=== PATIENT | female | born 1995 | race Caucasian/White ===

== ENCOUNTER 2023-06-04 20:05 | Inpatient (IN) | payer OTHER, SELFPAY ==
[2023-06-04 20:07] VITALS: BP 115/82; PULSE 87; RESP 16; TEMP 36.3; O2SAT 100; BMI 37.6
[2023-06-04 21:59] LABS: Bacteria 0 SEEN /hpf (None Seen); Mucous, Urine 0 SEEN /hpf (<or=2+); Red Blood Cells-Urine 0 SEEN /hpf (0-5); White Blood Cells 0 SEEN /hpf (0-5)
[2023-06-04 22:03] LABS: Color, Urine Yellow (Yellow); Glucose, Dipstick Normal (Normal); Ketone-Dipstick 5 mg/dl (Negative); Leukocyte Esterase-Dipstick Negative /ul (Negative); Nitrite-Dipstick Negative (Negative); Occult Blood-Urine Negative /ul (Negative); Protein-Dipstick Negative (Negative); Specific Gravity, Urine 1.015 (1.002-1.030); Urine Bilirubin Dipstick Negative (Negative); Urine Clarity Clear (Clear); Urine Urobilinogen Normal (Normal)
[2023-06-04 22:03] LABS: Absolute Lymphocyte Count 1.74 X10^3/uL (0.83-4.51); Absolute Neutrophil Count 5.2 X10^3/uL (2.0-7.7); Basophil# 0.03 X10^3/uL; Basophil% 0.4 % (0-1); Eosinophil# 0.08 X10^3/uL; Hemoglobin 13.3 g/dL (12.0-15.0); Lymphocyte # 1.74 X10^3/ul (0.83-4.51); Lymphocyte % 22.8 % (19-41); Mean Corp Hgb Conc 33.3 g/dL (32-36); Mean Corpuscular Hgb 30.2 pg (27.0-32.0); Mean Corpuscular Volume 90.7 fL (81-99); Monocyte# 0.54 X10^3/uL; Monocyte% 7.1 % (0-10); NRBC Flagged by Analyzer 0 % (0-5); Neutrophil # 5.23 X10^3/uL (2.7-7.7); Neutrophil % 68.4 % (47-70); Platelet Count 399 K/mm3 (150-450); RBC Distribution Width CV 12.1 % (11.6-14.6); RBC Distribution Width SD 40.2 fl (35.1-43.9); Red Blood Count 4.41 M/mm3 (4.2-5.4); White Blood Count 7.6 K/mm3 (4.4-11.0)
[2023-06-04 22:11] LABS: Squamous Epithelial Cells - UA 0-5 SEEN /hpf (5-10)
[2023-06-04 22:11] LABS: Internal QC Validated? YES +Cl - CLEAR BKGD; Pregnancy, Serum, hCG Quali. NEGATIVE Negative
[2023-06-04 22:20] LABS: ALB/GLOB Ratio 1.2 RATIO (0.9-2.4); AST(SGOT) 618 U/L (15-37); Alanine Aminotransfer ALT/SGPT 570 U/L (13-56); Albumin, Serum 3.8 g/dL (3.2-5.0); Alkaline Phosphatase 102 U/L (45-117); Anion Gap 4 (5-15); BUN 7 mg/dL (7-18); BUN/Creat Ratio 10.5 RATIO (10-20); Calcium,Total 8.8 mg/dL (8.5-10.1); Chloride 107 mmol/L (98-107); Creatinine, Serum 0.67 mg/dL (0.55-1.02); EST Glomerular Filtration Rate 113 mL/min (>60); Est Glom Filt Rate - Afr Amer 137 mL/min (>60); Estimated Creatinine Clearance 100.64 ml/min; Globulin 3.2 g/dL (2.2-4.2); Glucose 120 mg/dL (74-106); Potassium 3.4 mmol/L (3.5-5.1); Sodium Level 137 mmol/L (136-145)
--- NOTE | 2023-06-04 22:33 | US_ITS ---
EXAM: US ABDOMEN LIMITED, RIGHT UPPER QUADRANT CLINICAL INDICATION: RUQ PAIN TECHNIQUE: Real-time ultrasound of the right upper quadrant with image documentation. COMPARISON: No relevant prior studies available. FINDINGS: LIVER: No significant abnormality. There is normal echotexture. No focal hepatic lesion. No intrahepatic biliary ductal dilation. GALLBLADDER: The gallbladder is full of stones resulting in diffuse shadowing. Although poorly defined, there is no distinct bladder wall thickening. Negative sonographic Tineo''s sign. No pericholecystic fluid. COMMON BILE DUCT: Normal as visualized. The proximal common bile duct is within normal limits for the patient''s age. PANCREAS: The pancreatic tail is not visualized. The remainder of the pancreas appears normal. RIGHT KIDNEY: No significant abnormality. There is no hydronephrosis. No shadowing calculus. No focal lesion or perinephric collection is demonstrated. US/Gallbladder IMPRESSION: Cholelithiasis. The gallbladder is full of stones. No evidence of cholecystitis. Electronically Signed: Eleazar Hebert DO at 23:55 EST ,
--- NOTE | 2023-06-04 22:35 | ED.VIS.GI ---
HPI HPI - GI History of Present Illness Chief Complaint: Abd Pain Narrative Narrative: 28-year-old female presenting with right upper quadrant abdominal pain. Patient states she has history of gallbladder issues. Previously she was seen [facility] for this. She states that they did not want to take gallbladder out. Patient states that a tonight she had noticed pain. Potential painkillers. Pain is better but not resolved. No fevers chills. No constipation or diarrhea. PFSH PFSH Home Medications NK 06/04/23 [History Last Taken Unknown] Allergy/AdvReac Type Severity Reaction Status Date / Time No Known Allergies Allergy Verified 06/04/23 21:16 Social History Smoking Status: Never smoker ROS ROS ED Constitutional Constitutional ED: Denies chills, fever(s) or sweats Eyes Eyes: Denies blurry vision or change in vision ENT ENT ED: Denies ear pain or sore throat Cardiovascular Cardiovascular: Denies chest pain, palpitations or racing heartbeat Respiratory/Chest Respiratory/Chest: Denies cough, dyspnea or sputum Gastrointestinal Gastrointestinal: Reports abdominal pain; Denies constipation, diarrhea, nausea or vomiting Genitourinary Genitourinary ED: Denies dysuria, hematuria or urinary frequency Musculoskeletal Musculoskeletal: Denies arthralgias, myalgias or neck pain Integumentary Denies abscess, Abrasions or rash Neurologic Neurologic: Denies headache(s), paresthesias or weakness Psychiatric Psychiatric: Denies anxiety, depression, suicidal ideation or suicidal thoughts Endocrine Endocrinology: Denies polydipsia or polyuria EXAM Physical Exam Const Vital Signs: 06/04/23 20:07 Temperature 97.4 F L Temperature Source Temporal Pulse Rate 87 Respiratory Rate 16 Blood Pressure 115/82 H Blood Pressure Mean 93 Pulse Ox 100 Oxygen Delivery Method Room Air Positive well nourished and well developed General Appearance ED: well developed; Negative for pallor HEENT Reports moist mucous membranes normocephalic and atraumatic Eyes General Eye ED: Yes pale conjunctiva; Negative for scleral icterus Neck no lymphadenopathy GI Palpation: tender RLQ Extremity full ROM Neuro CN's II-XII intact bilaterally and moves all extremities Sensorium / Orientation: alert and oriented to person Psych mental status grossly normal and thought process normal Skin no wounds General Skin Exam: Negative for jaundice or pallor MDM MDM MDM Narrative Medical decision making narrative: 28-year-old female presenting with right upper quadrant pain. Patient states she has a history of gallbladder issues. Patient took pain meds before coming to the ER. Differential includes gastritis, peptic ulcer disease, colitis, pancreattitis, cholelithiasis, cholecystitis,uti Pyelonephritis. CBC was obtained to assess white blood cell count, hemoglobin, platelets. CMP to assess liver function, liver function, electrolytes. Lipase to assess for pancreatitis, urinalysis to assess for UTI. CBC shows normal white blood cell count of 7.6. Hemoglobin stable at 15.3. Platelets are normal at 399. Renal function is normal. Total bilirubin 1.3. AST 618, ALT 570. Lipase is normal. Patient currently states she is pain-free because she took pain meds before she came. She was offered pain medicine here and declines. Right upper quadrant ultrasound shows cholelithiasis without cholecystitis. Discussed with general surgery who recommended ERCP. I spoke with Dr. Larson who is amenable to this. Patient admitted to medicine. She was given a dose of Zosyn. Discussed all findings and future procedures with the patient. She is amenable to this. Impression: 1. Acute cholelithiasis 2. Elevated LFTs Lab Data Attestation: I reviewed the patient's lab results. Labs: Laboratory Results - last 24 hr 06/04/23 06/04/23 21:50 21:54 WBC 7.6 RBC 4.41 Hgb 13.3 Hct 40.0 MCV 90.7 MCH 30.2 MCHC 33.3 RDW Std Deviation 40.2 RDW Coeff of Fatmata 12.1 Plt Count 399 MPV 9.0 Immature Gran % (Auto) 0.300 Neut % (Auto) 68.4 Lymph % (Auto) 22.8 [place] % (Auto) 7.1 Eos % (Auto) 1.0 Baso % (Auto) 0.4 Absolute Neuts (auto) 5.2 Absolute Lymphs (auto) 1.74 Nucleated RBC % 0 Sodium 137 Potassium 3.4 L Chloride 107 Carbon Dioxide 26.0 Anion Gap 4 L BUN 7 Creatinine 0.67 Estim Creat Clear Calc 100.64 Est GFR (MDRD) Af Amer 137 Est GFR (MDRD) Non-Af 113 BUN/Creatinine Ratio 10.5 Glucose 120 H Calcium 8.8 Total Bilirubin 1.30 H AST 618 H ALT 570 H Alkaline Phosphatase 102 Total Protein 7.0 Albumin 3.8 Globulin 3.2 Albumin/Globulin Ratio 1.2 Lipase 37 Serum , Qual NEGATIVE Urine Color Yellow Urine Clarity Clear Urine pH 6.0 Ur Specific [place] 1.015 Urine Protein Negative Urine Glucose (UA) Normal Urine Ketones 5 H Urine Occult Blood Negative Urine Nitrite Negative Urine Bilirubin Negative Urine Urobilinogen Normal Ur Leukocyte Esterase Negative Urine RBC 0 SEEN Urine WBC 0 SEEN Ur Squamous Epith Cells 0-5 SEEN Urine Bacteria 0 SEEN Urine Mucus 0 SEEN Radiography Diagnostic Testing: Clinical Impression(s) from Imaging Studies Gallbladder Ultrasound 06/04/23 22:33 IMPRESSION: Cholelithiasis. The gallbladder is full of stones. No evidence of cholecystitis. Electronically Signed: Eleazar Hebert DO at 23:55 EST , Discharge Plan Triage Chief Complaint: Abd Pain ED Provider: Clarence Mcconnell Dx/Rx/DC Orders Prescriptions: No Action NK Primary Care Provider: Martin Lin Referrals: Martin Lin DO [Primary Care Provider] -
[2023-06-04 23:39] LABS: Lipase 37 U/L (13-75)
[2023-06-05] VITALS (13 sets, daily range): BP systolic 106–129; BP diastolic 61–77; PULSE 63–107; RESP 14–18; TEMP 36.3–36.8; O2SAT 96–100; BMI 37.1
--- NOTE | 2023-06-05 01:06 | HP.PCM.HOS_ITS ---
HPI - General General Date of Admission: 06/05/23 Date of Service: 06/05/23 Chief Complaint: Right upper quadrant abdominal pain HPI Narrative LAKEISHA BLACKWELL, is a 28 F with a past medical history of gallbladder colic; previously evaluated the [facility] and obesity with a BMI of 37.7 this admission who presents to [facility] ER complaining of right upper quadrant abdominal pain. Ms. Blackwell reports her symptoms began a pproximately 1 day prior to admission with the abrupt onset of right upper quadrant pain similar to her previous episodes of gallbladder colic. She explains that her physicians at the [facility] wanted to avoid cholecystectomy in the past. She denies associated fever, chills, nausea, vomiting or significant recent use of Tylenol. In the ER her right upper quadrant ultrasound revealed cholelithiasis without evidence of cholecystitis along with laboratory evidence of hyperbilirubinemia with a total bilirubin of 1.3 mg/dL and hyper transaminasemia with an AST of 618 and ALT of 570 present on admission along with mild hypokalemia of 3.4 mmol/L present on admission. The ER physician and spoke to Dr. Kunz of general surgery who recommended GI consultation with Dr. Larson for ERCP prior to semielective cholecystectomy on Thursday or Thursday of next week. She was then admitted to the general medical floor for ongoing care for a stay that is expected to extend beyond 48 hours. [facility] Medical History (Updated 06/05/23 @ 03:04 by Keyonna Goodrich) Injury of head and neck Home Medications NK 06/04/23 [History Last Taken Unknown] Allergy/AdvReac Type Severity Reaction Status Date / Time No Known Allergies Allergy Verified 06/04/23 21:16 Social History Smoking Status: Never smoker ROS ROS Narrative Review of systems: Constitutional: Patient denies fevers chills or sweats ENT: Patient denies ear pain, rhinorrhea or sore throat Eyes: Patient denies blurry vision or changes in vision Cardiovascular: Patient denies chest pain or palpitations Respiratory: Patient denies cough or shortness of breath Gastrointestinal: Patient admits to abdominal pain but denies constipation, diarrhea, nausea or vomiting Genitourinary: Patient denies dysuria hematuria or urinary frequency Musculoskeletal: Patient denies arthralgias, myalgias, neck pain or back pain Integumentary: Patient denies abscess or rash Neurologic: Patient denies headache or focal neurologic deficits Psychiatric: Patient denies anxiety depression or suicidal thoughts Endocrine: Patient denies polyuria, polyphagia and polydipsia 14 point review systems otherwise negative except for positives noted in HPI above. Vital Signs Vital Signs Vital Signs: 06/04/23 20:07 Temperature 97.4 F L Temperature Source Temporal Pulse Rate 87 Respiratory Rate 16 Blood Pressure 115/82 H Blood Pressure Mean 93 Pulse Ox 100 Oxygen Delivery Method Room Air Weight Weight: 206 lb Body Mass Index (BMI) 37.6 Physical Exam Const alert, oriented x3, no apparent distress and healthy appearing Constitutional Narrative: Patient is obese. General Appearance: cooperative HEENT normocephalic, head/scalp atraumatic, hearing grossly normal bilaterally, moist oral mucous membranes and oropharynx normal Eyes PERRL and EOMs intact bilaterally Eyes Narrative: Conjunctivae are pale. Neck no lymphadenopathy, supple, no JVD and no carotid bruits Resp normal respiratory effort, no retractions, no use of accessory muscles and clear to auscultation bilaterally Cardio regular rate and regular rhythm GI GI Narrative: Positive right upper quadrant tenderness to palpation. Extremity normal to inspection, full ROM and no clubbing, cyanosis or edema Neuro oriented x3, CN's II-XII intact bilaterally, moves all extremities and no focal motor deficits Sensorium / Orientation: awake, alert, oriented to person, oriented to place and oriented to time Speech: speech normal Motor Exam: strength 5/5 throughout Psych affect normal Results Lab / Micro Data Attestation: I reviewed the patient's lab results. Lab results narrative: [facility] Imaging Services [address] [place] [address] Gallbladder MR#: [id number] Acct: [id number] Name: LAKEISHA BLACKWELL Rep #: [id number] : 1995 F 28 From: Eleazar Hebert DO PCP: Dr. Martin Lin, Status: REG ER Study: Gallbladder Date of Exam: 06/04/23 Exam# [id number] Ordering Dr: Clarence Mcconnell DO EXAM: US ABDOMEN LIMITED, RIGHT UPPER QUADRANT CLINICAL INDICATION: RUQ PAIN TECHNIQUE: Real-time ultrasound of the right upper quadrant with image documentation. COMPARISON: No relevant prior studies available. FINDINGS: LIVER: No significant abnormality. There is normal echotexture. No focal hepatic lesion. No intrahepatic biliary ductal dilation. GALLBLADDER: The gallbladder is full of stones resulting in diffuse shadowing. Although poorly defined, there is no distinct bladder wall thickening. Negative sonographic Tineo''s sign. No pericholecystic fluid. COMMON BILE DUCT: Normal as visualized. The proximal common bile duct is within normal limits for the patient''s age. PANCREAS: The pancreatic tail is not visualized. The remainder of the pancreas appears normal. RIGHT KIDNEY: No significant abnormality. There is no hydronephrosis. No shadowing calculus. No focal lesion or perinephric collection is demonstrated. US/Gallbladder IMPRESSION: Cholelithiasis. The gallbladder is full of stones. No evidence of cholecystitis. Electronically Signed: Eleazar Hebert DO at 23:55 EST , CC: Dr. Clarence Mcconnell DO; Dr. Martin Lin DO ~ Fancy [employer]er: Signed 06/04/23 21:54 06/04/23 21:54 Labs: Laboratory Results - last 24 hr 06/04/23 21:50: Urine Color Yellow, Urine Clarity Clear, Urine pH 6.0, Ur Specific [place] 1.015, Urine Protein Negative, Urine Glucose (UA) Normal, Urine Ketones 5 H, Urine Occult Blood Negative, Urine Nitrite Negative, Urine Bilirubin Negative, Urine Urobilinogen Normal, Ur Leukocyte Esterase Negative, Urine RBC 0 SEEN, Urine WBC 0 SEEN, Ur Squamous Epith Cells 0-5 SEEN, Urine Bacteria 0 SEEN, Urine Mucus 0 SEEN 06/04/23 21:54: WBC 7.6, RBC 4.41, Hgb 13.3, Hct 40.0, MCV 90.7, MCH 30.2, MCHC 33.3, RDW Std Deviation 40.2, RDW Coeff of Fatmata 12.1, Plt Count 399, MPV 9.0, Immature Gran % (Auto) 0.300, Neut % (Auto) 68.4, Lymph % (Auto) 22.8, [place] % (Auto) 7.1, Eos % (Auto) 1.0, Baso % (Auto) 0.4, Absolute Neuts (auto) 5.2, Absolute Lymphs (auto) 1.74, Nucleated RBC % 0, Sodium 137, Potassium 3.4 L, Chloride 107, Carbon Dioxide 26.0, Anion Gap 4 L, BUN 7, Creatinine 0.67, Estim Creat Clear Calc 100.64, Est GFR (MDRD) Af Amer 137, Est GFR (MDRD) Non-Af 113, BUN/Creatinine Ratio 10.5, Glucose 120 H, Calcium 8.8, Total Bilirubin 1.30 H, AST 618 H, ALT 570 H, Alkaline Phosphatase 102, Total Protein 7.0, Albumin 3.8, Globulin 3.2, Albumin/Globulin Ratio 1.2, Lipase 37, Serum , Qual NEGATIVE Radiology Impression Gallbladder Ultrasound 06/04/23 22:33 IMPRESSION: Cholelithiasis. The gallbladder is full of stones. No evidence of cholecystitis. Electronically Signed: Eleazar Hebert DO at 23:55 EST , Assessment & Plan Assessment/Plan (1) Right upper quadrant pain: (2) Elevated liver enzymes: PLAN: Plan 1. Right upper quadrant pain with mild hyperbilirubinemia and moderate hypertransaminasemia; with AST of 618 and ALT of 570 present on admission in the setting of a known history of gallbladder colic previously followed at the [facility] along with numerous gallstones on ultrasound this admission - Admit to general medical floor. Continue empiric IV Zosyn begun in the ER. Avoid Tylenol due to increase risk of further potential hepatotoxicity. Give ketorolac 15 mg IV every 8 hours as needed for [id number] level 1-5 pain or fever. Give morphine IV as needed for severe level 6-10/10 pain. Check hepatitis profile to rule out acute or chronic infection. Check acetaminophen level to make sure there is not occult use. We will obtain MRCP this a.m. to further define her anatomy. Finally, we will consult Dr. Larson of gastroenterology service for ERCP this admission along with consultation placed to Dr. Kunz of general surgery for cholecystectomy tentatively planned for early next week with the help of both appreciated in advance. 2. Hypokalemia of 3.4 mmol/L present on admission - Give supplemental potassium chloride and then recheck level in the a.m. to ensure improvement. 3. Obesity with a BMI of 37.7 this admission - Weight loss will be recommended. Check TSH. 4. DVT prophylaxis - Patient will only have SCDs placed for now. We will avoid heparin or Lovenox at this time with impending ERCP. Low molecular weight heparin should be started after procedure is done and when okay with [facility] roenterology. Total time: Approximately 55 minutes. Charges/Coding Visit Charges Inpatient E&M: 07386 Init Hosp L2
[2023-06-05] MEDS: Piperacil/Tazobactam 3.375 GM in 0.9% Normal Saline (50mL MB+) 50 ML IV ×4 (01:20→21:22)
--- NOTE | 2023-06-05 01:39 | EKG12_ITS ---
Test Reason : PRE-OP Blood Pressure : / mmHG Vent. Rate : 051 BPM Atrial Rate : 051 BPM P-R Int : 140 ms QRS Dur : 096 ms QT Int : 480 ms P-R-T Axes : 039 054 050 degrees QTc Int : 442 ms Sinus bradycardia Otherwise normal ECG Confirmed by IRASEMA ROJAS, VALENTE ([id number]), desk editor TAMIE SHARPE ([id number]) on 06/08/2023 8:20:24 AM Referred By: Confirmed By:STEVEN VILLALPANDO MD
--- NOTE | 2023-06-05 01:43 | MRI_ITS ---
STUDY: MRI ABDOMEN WITHOUT CONTRAST REASON FOR EXAM: Female, 28 years old. Right upper quadrant pain with elevated AST ALT TECHNIQUE: Standardized fat and water weighted pulse sequences were obtained in all 3 orthogonal planes. COMPARISON: Right upper quadrant ultrasound dated June 04, 2023 FINDINGS: The visualized lung bases are unremarkable. The visualized portions of the heart are within normal limits. Normal liver. The gallbladder contains numerous small stones occupying approximately 50% of the lumen of the gallbladder. No gallbladder wall thickening or pericholecystic fluid is present. No inflammatory stranding is seen. There is also moderate dilatation of the common bile duct measuring up to 1.30 cm in diameter and a single small filling defect seen at the terminal in of the CBD/duodenal junction either representing a stone or fold measuring 6.5 mm, see image 6/60 series 10 on the MRCP reconstructions. Otherwise there are no filling defects in the remaining aspects of the CBD. Normal spleen. Normal pancreas. Normal bilateral adrenal glands. Normal right kidney. Normal left kidney. Normal visualized stomach. Normal small intestine. Normal colon. There is non-visualization of the appendix. Normal abdominal aorta. Normal inferior vena cava. Normal retroperitoneum. Normal abdominal wall. Normal osseous structures. IMPRESSION: 1. The gallbladder contains numerous small stones occupying approximately 50% of the lumen of the gallbladder. No gallbladder wall thickening or pericholecystic fluid is present. No inflammatory stranding is seen. There is also moderate dilatation of the common bile duct measuring up to 1.30 cm in diameter and a single small filling defect seen at the terminal in of the CBD/duodenal junction either representing a stone or fold measuring 6.5 mm, see image 6/60 series 10 on the MRCP reconstructions. Otherwise there are no filling defects in the remaining aspects of the CBD. 2. Consultation with GI recommended. STUDY: MR CHOLANGIOPANCREATOGRAPHY (MRCP) REASON FOR EXAM: Female, 28 years old. Right upper quadrant pain with elevated AST ALT TECHNIQUE: Standard MRCP technique was utilized. COMPARISON: None. FINDINGS: Gall Bladder: The gallbladder contains numerous small stones occupying approximately 50% of the lumen of the gallbladder. Cystic duct: Normal with no demonstrated fixed filling defect. Intrahepatic ducts: Normal visualized intrahepatic ducts with no demonstrated fixed filling defect, dilation or stricture. Common hepatic duct: Normal with no demonstrated fixed filling defect, dilation or stricture. Common bile duct: There is moderate dilatation of the common bile duct measuring up to 1.30 cm in diameter and a single small filling defect seen at the terminal in of the CBD/duodenal junction either representing a stone or fold measuring 6.5 mm, see image 6/60 series 10 on the MRCP reconstructions. Otherwise there are no filling defects in the remaining aspects of the CBD. Pancreatic duct: Normal with no demonstrated fixed filling defect, dilation or stricture. MRI/MRCP Abdomen without Contrast IMPRESSION: 1. Cholelithiasis/multiple gallstones 2. There is also moderate dilatation of the common bile duct measuring up to 1.30 cm in diameter and a single small filling defect seen at the terminal in of the CBD/duodenal junction either representing a stone or fold measuring 6.5 mm, see image 6/60 series 10 on the MRCP reconstructions. Otherwise there are no filling defects in the remaining aspects of the CBD. Electronically Signed: Salvador Shoemaker MD at 11:47 EST ,
[2023-06-05] MEDS: Ondansetron 4 MG/2 ML Vial IV (03:30)
[2023-06-05] MEDS: KCL 20MEQ in 0.9% NS 20 MEQ/1,000 ML IV.SOLN. 100 MEQ IV ×2 (03:30→14:16)
[2023-06-05] MEDS: Potassium Chloride Oral Tablet 20 MEQ 40 MEQ PO (03:30)
[2023-06-05 05:30] LABS: Acetaminophen (Tylenol) Level < 2.0 ug/mL (10.0-30.0)
[2023-06-05 05:34] LABS: Cholesterol 168 mg/dL (200); High Density Lipoprotein 49 mg/dL; Triglycerides 72 mg/dL; Very Low Density Lipoprotein 14 mg/dL (5-40)
--- NOTE | 2023-06-05 07:50 | PCM.PN.HOSP ---
Reason for Visit Reason for Visit: Diagnoses Right upper quadrant pain (06/05/23) Abnormal levels of other serum enzymes (06/05/23) Objective Data Objective Data Vital Signs: Vital Signs Temp Pulse Resp BP Pulse Ox O2 Del Method 98.2 F 63 16 109/68 99 Room Air 06/05/23 03:12 06/05/23 03:12 06/05/23 03:12 06/05/23 03:12 06/05/23 03:12 06/05/23 03:12 Oxygen Delivery Method Room Air Weight: 203 lb Body Mass Index (BMI) 37.1 Intake & Output: Intake and Output for Last 24 Hours 06/03/23 06/04/23 06/05/23 23:59 23:59 23:59 Intake Total 100 / 100 Balance 100 / 100 Lab / Micro Data 06/04/23 21:54 06/04/23 21:54 Labs: Laboratory Results - last 24 hr 06/04/23 21:50: Urine Color Yellow, Urine Clarity Clear, Urine pH 6.0, Ur Specific [place] 1.015, Urine Protein Negative, Urine Glucose (UA) Normal, Urine Ketones 5 H, Urine Occult Blood Negative, Urine Nitrite Negative, Urine Bilirubin Negative, Urine Urobilinogen Normal, Ur Leukocyte Esterase Negative, Urine RBC 0 SEEN, Urine WBC 0 SEEN, Ur Squamous Epith Cells 0-5 SEEN, Urine Bacteria 0 SEEN, Urine Mucus 0 SEEN 06/04/23 21:54: WBC 7.6, RBC 4.41, Hgb 13.3, Hct 40.0, MCV 90.7, MCH 30.2, MCHC 33.3, RDW Std Deviation 40.2, RDW Coeff of Fatmata 12.1, Plt Count 399, MPV 9.0, Immature Gran % (Auto) 0.300, Neut % (Auto) 68.4, Lymph % (Auto) 22.8, O'Brien % (Auto) 7.1, Eos % (Auto) 1.0, Baso % (Auto) 0.4, Absolute Neuts (auto) 5.2, Absolute Lymphs (auto) 1.74, Nucleated RBC % 0, Sodium 137, Potassium 3.4 L, Chloride 107, Carbon Dioxide 26.0, Anion Gap 4 L, BUN 7, Creatinine 0.67, Estim Creat Clear Calc 100.64, Est GFR (MDRD) Af Amer 137, Est GFR (MDRD) Non-Af 113, BUN/Creatinine Ratio 10.5, Glucose 120 H, Calcium 8.8, Total Bilirubin 1.30 H, AST 618 H, ALT 570 H, Alkaline Phosphatase 102, Total Protein 7.0, Albumin 3.8, Globulin 3.2, Albumin/Globulin Ratio 1.2, Lipase 37, Serum , Qual NEGATIVE 06/05/23 04:25: Triglycerides 72, Cholesterol 168, LDL Cholesterol 105, VLDL Cholesterol 14, HDL Cholesterol 49, TSH 1.30, Acetaminophen < 2.0 L Radiography Diagnostic Testing: Radiology Impression Gallbladder Ultrasound 06/04/23 22:33 IMPRESSION: Cholelithiasis. The gallbladder is full of stones. No evidence of cholecystitis. Electronically Signed: Eleazar Hebert DO at 23:55 EST , Physical Exam Narrative Seen and examined. Patient had history of gallbladder colic had about 2-3 episodes of the gallbladder colic in the past. Patient on liquid diet. MRCP shows moderate dilatation of CBD measuring 1.3 cm with single small filling defect at terminal CBD/duodenal junction about 6.5 mm. Plan for ERCP. Physical exam General: Alert, Oriented x3, Cooperative HEENT: Atraumatic, PERRLA, EOMI, Normocephalic Oral: No Gingival or Mucosal Lesions/ Ulcerations Neck: Supple, No JVD, Negative Carotid Bruits Lungs: Air entry diminished in bilateral lung bases. No crepitation/rhonchi Cardiovascular: Regular rate, Regular Rhythm, Normal S1, Normal S2, No murmurs Abdomen: Bowel Sounds Present, Soft, tenderness present over epigastrium and right upper quadrant. Tineo sign positive. : No renal angle tenderness. No suprapubic tenderness. Extremities: No edema, Capillary Refill Less than 3 Seconds Skin: No rashes, No breakdown Musculoskeletal: No Tenderness to Palpation of Joints or Extremities Neurological: Cranial nerves II-XII grossly intact, DTR 2+/4. No acute focal neurological deficit. Psych/Mental Status: Normal Affect, Appropriate. Assessment & Plan Assessment/Plan (1) Right upper quadrant pain: (2) Elevated liver enzymes: PLAN: Plan 28-year-old female was admitted for right upper quadrant abdominal pain for about 1 day prior to admission with history of gallbladder colic being followed by [facility].. Pain was of sudden abrupt onset similar to the previous episodes of gallbladder colic. No associated fever chills nausea vomiting or use of Tylenol. Ultrasound shows cholelithiasis without evidence of cholecystitis. 1. Right upper quadrant pain, gallbladder colic with cholelithiasis and choledocholithiasis: Total bilirubin 1.3, with AST of 618 and ALT of 570 present on admission.- Admit to general medical floor. Continue empiric IV Zosyn begun in the ER. Patient is on pain control with IV morphine. MRCP suggestive of stone at terminal CBD at junction of duodenum. Plan for ERCP with possible stent. Unfortunately will happen late around 4 to 5 PM and might return to room around 7-8 PM therefore advised to stay overnight for postprocedure vomiting nausea or other side effects. Discussed with surgeon. Plan for discharge after ERCP and then outpatient surgery preferably on Thursday. Serum Tylenol level normal. 2. Hypokalemia of 3.4 mmol/L present on admission -repeat potassium. 3. Obesity with a BMI of 37.7 this admission - Weight loss will be recommended. Check TSH. 4. DVT prophylaxis - Patient will only have SCDs placed for now. Discussed with the patient and her near the bedside. Charges/Coding Visit Charges Inpatient E&M: 58679 Subs Hosp L2
[2023-06-05] MEDS: 0.9% Saline Lock 10 ML Syringe IV (09:30)
[2023-06-05] MEDS: Ketorolac 15 MG/ML Vial IV (09:31)
--- NOTE | 2023-06-05 09:34 | CON.PCM.SX_ITS ---
Assessment & Plan Assessment/Plan (1) Elevated liver enzymes: PLAN: The patient has cholelithiasis as well as elevated liver enzymes. She will be taken today for ERCP with possible stent. If the patient does have choledocholithiasis and a stent is placed I will schedule her for outpatient surgery soon, if the duct is cleared but a stent is not placed and I will plan for taking her gallbladder out early next week. Hu Kunz MD Pager: [facility] [address] [place] [address], [address] [place] [address] Office: HPI Consult Data Date of Consult: 06/05/23 HPI Narrative HPI Narrative: LAKEISHA CLAYTON, is a 28 F who presents with right upper quadrant pain. The patient reports is been going on for couple days. Patient was found to have cholelithiasis as well as elevated liver enzymes. She denies nausea or vomiting. [facility] Medical History (Updated 06/05/23 @ 03:04 by Keyonna Goodrich) Injury of head and neck Home Medications NK 06/04/23 [History Last Taken Unknown] Allergy/AdvReac Type Severity Reaction Status Date / Time No Known Allergies Allergy Verified 06/04/23 21:16 Social History Smoking Status: Never smoker ROS ROS Narrative Review of systems: Constitutional: Patient denies fevers chills or sweats ENT: Patient denies ear pain, rhinorrhea or sore throat Eyes: Patient denies blurry vision or changes in vision Cardiovascular: Patient denies chest pain or palpitations Respiratory: Patient denies cough or shortness of breath Gastrointestinal: Patient admits to abdominal pain but denies constipation, diarrhea, nausea or vomiting Genitourinary: Patient denies dysuria hematuria or urinary frequency Musculoskeletal: Patient denies arthralgias, myalgias, neck pain or back pain Integumentary: Patient denies abscess or rash Neurologic: Patient denies headache or focal neurologic deficits Psychiatric: Patient denies anxiety depression or suicidal thoughts Endocrine: Patient denies polyuria, polyphagia and polydipsia 14 point review systems otherwise negative except for positives noted in HPI above. Physical Exam Const alert and oriented x3 HEENT normocephalic Eyes PERRL Resp normal respiratory effort Cardio Rate: regular rate Rhythm: regular rhythm Lab / Micro Data 06/04/23 21:54 06/04/23 21:54 Labs: Laboratory Results - last 24 hr 06/04/23 21:50: Urine Color Yellow, Urine Clarity Clear, Urine pH 6.0, Ur Specific [place] 1.015, Urine Protein Negative, Urine Glucose (UA) Normal, Urine Ketones 5 H, Urine Occult Blood Negative, Urine Nitrite Negative, Urine Bilirubin Negative, Urine Urobilinogen Normal, Ur Leukocyte Esterase Negative, Urine RBC 0 SEEN, Urine WBC 0 SEEN, Ur Squamous Epith Cells 0-5 SEEN, Urine Bacteria 0 SEEN, Urine Mucus 0 SEEN 06/04/23 21:54: WBC 7.6, RBC 4.41, Hgb 13.3, Hct 40.0, MCV 90.7, MCH 30.2, MCHC 33.3, RDW Std Deviation 40.2, RDW Coeff of Fatmata 12.1, Plt Count 399, MPV 9.0, Immature Gran % (Auto) 0.300, Neut % (Auto) 68.4, Lymph % (Auto) 22.8, [place] % (Auto) 7.1, Eos % (Auto) 1.0, Baso % (Auto) 0.4, Absolute Neuts (auto) 5.2, Absolute Lymphs (auto) 1.74, Nucleated RBC % 0, Sodium 137, Potassium 3.4 L, Chloride 107, Carbon Dioxide 26.0, Anion Gap 4 L, BUN 7, Creatinine 0.67, Estim Creat Clear Calc 100.64, Est GFR (MDRD) Af Amer 137, Est GFR (MDRD) Non-Af 113, BUN/Creatinine Ratio 10.5, Glucose 120 H, Calcium 8.8, Total Bilirubin 1.30 H, AST 618 H, ALT 570 H, Alkaline Phosphatase 102, Total Protein 7.0, Albumin 3.8, Globulin 3.2, Albumin/Globulin Ratio 1.2, Lipase 37, Serum , Qual NEGATIVE 06/05/23 04:25: Triglycerides 72, Cholesterol 168, LDL Cholesterol 105, VLDL Cholesterol 14, HDL Cholesterol 49, TSH 1.30, Acetaminophen < 2.0 L Radiology Impression Gallbladder Ultrasound 06/04/23 22:33 IMPRESSION: Cholelithiasis. The gallbladder is full of stones. No evidence of cholecystitis. Electronically Signed: Eleazar Hebert DO at 23:55 EST ,
--- NOTE | 2023-06-05 10:50 | CASEMGMT ---
SORIN WEBER Assessment: Face to Face with pt for initial transition planning/care coordination assessment. RN TIA introduced self and role at [facility], pt voices understanding and consents to assessment. Pt is A&O x4 and answers all questions appropriately at this time. Pt lying in bed in no distress with at bedside. Care providers, pharmacy, and demographics verified/updated. Admitting Dx: R upper quadrant pain with elevated LFT's PCP:Delia Specialists: Denies Preferred Pharmacy:[facility] Retail Insurance: [employer] Prescription Benefit: no LNOK: Erickson Blackwell, Living Arrangements: Pt lives with and two children in a two story home with 5 steps to enter with a rail. Pt reports she is I in ADL's and denies concerns at home. Transportation: Pt hires drivers for transportation. DME:Denies HHC/SNF: Denies hx of Pt states no concerns with going home at time of dc. Pt states no further concerns/needs. CM to follow. Advised pt to ask CM if any further question/concerns/needs arise, voices understanding. Pt Goal: Home Plan: Home
--- NOTE | 2023-06-05 11:16 | PCM.PN.BLA ---
Progress Note I discussed the situation in more detail with the patient and her significant other. I also discussed with Dr. Larson. The plan is that he will take her for ERCP and place a stent. I have her on the schedule for Thursday for laparoscopic cholecystectomy as an outpatient. As long as the ERCP goes well and the stent is placed she may start a diet when it is appropriate by Dr. Larson and primary service and be discharged home and follow-up on Thursday for surgery. I explained that they would call her Thursday to give her surgical time. I went over laparoscopic cholecystectomy with her in detail. I discussed the procedure in detail with the patient. I discussed the risks, benefits, and alternatives of the procedure. I discussed the risks including but not limited to bleeding, infection, injury to surrounding organs such as the liver, bile duct, bowels. I did discuss the possibility of having to convert to an open procedure as well as the possibility that if any injuries occurred this may necessitate further surgery at a tertiary care center. Hu Kunz MD Pager: [facility] [address] [place] [address] [address] [place] [address] Office:
--- NOTE | 2023-06-05 12:00 | EX.PCM.CON.G ---
HPI Consult Data Date of Consult: 06/05/23 HPI Narrative Reason for Consultation: Cholestatic hepatitis with jaundice HPI Narrative: LAKEISHA BLACKWELL, is a 28 F who presents with worsening abdominal pain. She has a past medical history of gallbladder colic; previously evaluated the [facility] and obesity with a BMI of 37.7 this admission who presents to [facility] ER complaining of right upper quadrant abdominal pain. Mrs. Blackwell reports her symptoms began approximately 1 day prior to admission with the abrupt onset of right upper quadrant pain similar to her previous episodes of gallbladder colic. She explains that her physicians at the [facility] wanted to avoid cholecystectomy in the past. She denies associated fever, chills, nausea, vomiting or significant recent use of Tylenol. In the ER her right upper quadrant ultrasound revealed cholelithiasis without evidence of cholecystitis along with laboratory evidence of hyperbilirubinemia with a total bilirubin of 1.3 mg/dL and hyper transaminasemia with an AST of 618 and ALT of 570 present on admission along with mild hypokalemia of 3.4 mmol/L present on admission. She had an MRCP that displayed: The gallbladder contains numerous small stones occupying approximately 50% of the lumen of the gallbladder. No gallbladder wall thickening or pericholecystic fluid is present. No inflammatory stranding is seen. There is also moderate dilatation of the common bile duct measuring up to 1.30 cm in diameter and a single small filling defect seen at the terminal in of the CBD/duodenal junction either representing a stone or fold measuring 6.5 mm [facility] Medical History (Updated 06/05/23 @ 03:04 by Keyonna Goodrich) Injury of head and neck Home Medications NK 06/04/23 [History Last Taken Unknown] Allergy/AdvReac Type Severity Reaction Status Date / Time No Known Allergies Allergy Verified 06/04/23 21:16 Social History Smoking Status: Never smoker ROS ROS Narrative Review of systems: Constitutional: Patient denies fevers chills or sweats ENT: Patient denies ear pain, rhinorrhea or sore throat Eyes: Patient denies blurry vision or changes in vision Cardiovascular: Patient denies chest pain or palpitations Respiratory: Patient denies cough or shortness of breath Gastrointestinal: Patient admits to abdominal pain but denies constipation, diarrhea, nausea or vomiting Genitourinary: Patient denies dysuria hematuria or urinary frequency Musculoskeletal: Patient denies arthralgias, myalgias, neck pain or back pain Integumentary: Patient denies abscess or rash Neurologic: Patient denies headache or focal neurologic deficits Psychiatric: Patient denies anxiety depression or suicidal thoughts Endocrine: Patient denies polyuria, polyphagia and polydipsia 14 point review systems otherwise negative except for positives noted in HPI above. Physical Exam Const alert and oriented x3 HEENT normocephalic Eyes PERRL Resp normal respiratory effort Cardio Rate: regular rate Rhythm: regular rhythm Lab / Micro Data 06/04/23 21:54 06/04/23 21:54 Labs: Laboratory Results - last 24 hr 06/04/23 21:50: Urine Color Yellow, Urine Clarity Clear, Urine pH 6.0, Ur Specific [place] 1.015, Urine Protein Negative, Urine Glucose (UA) Normal, Urine Ketones 5 H, Urine Occult Blood Negative, Urine Nitrite Negative, Urine Bilirubin Negative, Urine Urobilinogen Normal, Ur Leukocyte Esterase Negative, Urine RBC 0 SEEN, Urine WBC 0 SEEN, Ur Squamous Epith Cells 0-5 SEEN, Urine Bacteria 0 SEEN, Urine Mucus 0 SEEN 06/04/23 21:54: WBC 7.6, RBC 4.41, Hgb 13.3, Hct 40.0, MCV 90.7, MCH 30.2, MCHC 33.3, RDW Std Deviation 40.2, RDW Coeff of Fatmata 12.1, Plt Count 399, MPV 9.0, Immature Gran % (Auto) 0.300, Neut % (Auto) 68.4, Lymph % (Auto) 22.8, Sebastian % (Auto) 7.1, Eos % (Auto) 1.0, Baso % (Auto) 0.4, Absolute Neuts (auto) 5.2, Absolute Lymphs (auto) 1.74, Nucleated RBC % 0, Sodium 137, Potassium 3.4 L, Chloride 107, Carbon Dioxide 26.0, Anion Gap 4 L, BUN 7, Creatinine 0.67, Estim Creat Clear Calc 100.64, Est GFR (MDRD) Af Amer 137, Est GFR (MDRD) Non-Af 113, BUN/Creatinine Ratio 10.5, Glucose 120 H, Calcium 8.8, Total Bilirubin 1.30 H, AST 618 H, ALT 570 H, Alkaline Phosphatase 102, Total Protein 7.0, Albumin 3.8, Globulin 3.2, Albumin/Globulin Ratio 1.2, Lipase 37, Serum , Qual NEGATIVE 06/05/23 04:25: Triglycerides 72, Cholesterol 168, LDL Cholesterol 105, VLDL Cholesterol 14, HDL Cholesterol 49, TSH 1.30, Acetaminophen < 2.0 L Radiology Impression Gallbladder Ultrasound 06/04/23 22:33 IMPRESSION: Cholelithiasis. The gallbladder is full of stones. No evidence of cholecystitis. Electronically Signed: Eleazar Hebert DO at 23:55 EST , MRCP 06/05/23 01:43 IMPRESSION: 1. Cholelithiasis/multiple gallstones 2. There is also moderate dilatation of the common bile duct measuring up to 1.30 cm in diameter and a single small filling defect seen at the terminal in of the CBD/duodenal junction either representing a stone or fold measuring 6.5 mm, see image 6/60 series 10 on the MRCP reconstructions. Otherwise there are no filling defects in the remaining aspects of the CBD. Electronically Signed: Salvador Shoemaker MD at 11:47 EST , Assessment & Plan Assessment/Plan (1) Right upper quadrant pain: (2) Elevated liver enzymes: PLAN: Plan Right upper quadrant pain with mild hyperbilirubinemia and moderate hypertransaminasemia; with AST of 618 and ALT of 570 present on admission in the setting of a known history of gallbladder colic previously followed at the [facility] along with numerous gallstones on ultrasound this admission Agree with admit to general medical floor. Continue empiric IV Zosyn begun in the ER. Avoid Tylenol due to increase risk of further potential hepatotoxicity. Give ketorolac 15 mg IV every 8 hours as needed for [id number] level 1-5 pain or fever. Give morphine IV as needed for severe level 6-10/10 pain. Check hepatitis profile to rule out acute or chronic infection. Check acetaminophen level to make sure there is not occult use. Dr. Kunz of general surgery for cholecystectomy tentatively planned for early next week with the help of both appreciated in advance. She was explained alternatives, risk, benefits including outstanding bleeding, infection, sepsis, perforation, need for mergers and and also post ERCP pancreatitis she will have an ASA of 3. Charges/Coding Visit Charges Inpatient E&M: 02097 Init Hosp L3
[2023-06-05] MEDS: Morphine 2 MG/ML Syringe IV (12:26)
--- NOTE | 2023-06-05 15:50 | NURSING ---
Off unit for ERCP at this time.
[2023-06-05] MEDS: Lactated Ringers 1,000 ML 999 ML IV ×2 (17:15→20:07)
--- NOTE | 2023-06-05 17:20 | RAD_ITS ---
ERCP next INDICATION: Abdominal pain. Fluoroscopy time: 1:30 Images obtained: 5 TECHNIQUE: Fluoroscopy time was utilized in the operating room during an ERCP and 5 images minute for interpretation. FINDINGS: Balloon sphincterotomy was performed. A biliary stent was placed. RAD/ERCP Biliary/Pancreas IMPRESSION: Balloon sphincterotomy and stent placement. Electronically Signed: Manuel Copeland MD at 18:28 EST ,
--- NOTE | 2023-06-05 17:53 | OP.ERCP_ITS ---
Patient Name: Tran Blackwell Procedure Date: 06/05/2023 5:02 PM Date of : 1995 Age: 28 Procedure: ERCP Indications: Bile duct stone(s) Providers: Camilo Larson DO Medicines: Monitored Anesthesia Care Patient Profile: This is a 28 year old female. Refer to note in patient chart for documentation of history and physical. Patient has symptoms of acute right upper quadrant abdominal pain and acute jaundice. This patient has no history of previous ERCP. Complications: No immediate complications. Procedure: Pre-Anesthesia Assessment: - Prior to the procedure, a History and Physical was performed, and patient medications and allergies were reviewed. The patient is competent. The risks and benefits of the procedure and the sedation options and risks were discussed with the patient. All questions were answered and informed consent was obtained. Patient identification and proposed procedure were verified by the physician in the pre-procedure area. Mental Status Examination: alert and oriented. Airway Examination: normal oropharyngeal airway and neck mobility. Respiratory Examination: clear to auscultation. CV Examination: normal. Prophylactic Antibiotics: The patient requires prophylactic antibiotics for the planned ERCP in an obstructed bile duct. The patient received antibiotic therapy before the procedure. Prior Anticoagulants: The patient has taken no previous anticoagulant or antiplatelet agents. ASA Grade Assessment: II - A patient with mild systemic disease. After reviewing the risks and benefits, the patient was deemed in satisfactory condition to undergo the procedure. The anesthesia plan was to use monitored anesthesia care (MAC). Immediately prior to administration of medications, the patient was re-assessed for adequacy to receive sedatives. The heart rate, respiratory rate, oxygen saturations, blood pressure, adequacy of pulmonary ventilation, and response to care were monitored throughout the procedure. The physical status of the patient was re-assessed after the procedure. After obtaining informed consent, the scope was passed under direct vision. Throughout the procedure, the patient's blood pressure, pulse, and oxygen saturations were monitored continuously. The Duodenoscope was introduced through the mouth, and advanced to the duodenum and used to inject contrast into the bile duct. The ERCP was accomplished without difficulty. The patient tolerated the procedure well. Scope In: 5:39:50 PM Scope Out: 5:49:18 PM Total Procedure Duration Time 0 hours 9 minutes 27 seconds Findings: The braid cutter film was normal. The esophagus was successfully intubated under direct vision. The scope was advanced to a normal major papilla in the descending duodenum without detailed examination of the pharynx, larynx and associated structures, and upper GI tract. The upper GI tract was grossly normal. The bile duct was deeply cannulated with the short-nosed traction sphincterotome. Contrast was injected. I personally interpreted the bile duct images. There was brisk flow of contrast through the ducts. Image quality was excellent. Contrast extended to the entire biliary tree. Opacification of the entire biliary tree except for the cystic duct and gallbladder and main bile duct was successful. The maximum diameter of the ducts was 10 mm. The entire biliary tree except for the cystic duct and gallbladder contained one stone, which was 6 mm in diameter. The main bile duct was diffusely dilated, with a stone causing an obstruction. The largest diameter was 10 mm. A straight Roadrunner wire was passed into the biliary tree. A 5 mm biliary sphincterotomy was made with a monofilament traction (standard) sphincterotome using ERBE electrocautery. Moderate bleeding from the sphincterotomy stopped within 5 minutes. The biliary tree was swept with a 15 mm balloon starting at the bifurcation. Sludge was swept from the duct. All stones were removed. Dilation of the entire main bile duct with 8-10 Fr catheter dilator was successful. One 10 Fr by 5 cm temporary stent was placed 3 cm into the common bile duct. Bile flowed through the stent. The stent was in good position. Impression: - The entire main bile duct was dilated, with a stone causing an obstruction. - Choledocholithiasis was found. Complete removal was accomplished by biliary sphincterotomy and balloon extraction. - A biliary sphincterotomy was performed. - The biliary tree was swept. - The entire main bile duct was successfully dilated. - One temporary stent was placed into the common bile duct. Procedure Code(s): --- Professional --- 97244, Endoscopic retrograde cholangiopancreatography (ERCP); with placement of endoscopic stent into biliary or pancreatic duct, including pre- and post-dilation and guide wire passage, when performed, including sphincterotomy, when performed, each stent [id number], Endoscopic retrograde cholangiopancreatography (ERCP); with removal of calculi/debris from biliary/pancreatic duct(s) 95668, 26, Endoscopic catheterization of the biliary ductal system, radiological supervision and interpretation CPT copyright 2021 [employer]. All rights reserved. The codes documented in this report are preliminary and upon senior shipping clerk review may be revised to meet current compliance requirements. Camilo Larson DO 06/05/2023 5:53:31 PM This report has been signed electronically. Number of Addenda: 0 Note Initiated On: 06/05/2023 5:02 PM
--- NOTE | 2023-06-05 17:54 | OP.CCLET_ITS ---
06/05/2023 Martin Lin Re : ERCP procedure for Tran Blackwell Dear Delia This procedure was performed on Monday, June 05, 2023. My impressions and recommendations are as follows: Impressions : - The entire main bile duct was dilated, with a stone causing an obstruction. - Choledocholithiasis was found. Complete removal was accomplished by biliary sphincterotomy and balloon extraction. - A biliary sphincterotomy was performed. - The biliary tree was swept. - The entire main bile duct was successfully dilated. - One temporary stent was placed into the common bile duct. Recommendations : My findings are described in the full procedure note, which is enclosed. If I can be of further assistance, please feel free to contact me at . Sincerely, aCmilo Larson, 06/05/2023 5:53:31 PM This report has been signed electronically.
[2023-06-06] MEDS: KCL 20MEQ in 0.9% NS 20 MEQ/1,000 ML IV.SOLN. 100 MEQ IV (01:15)
[2023-06-06 03:43] VITALS: BMI 37.3
[2023-06-06 05:00] VITALS: BP 100/69; PULSE 66; RESP 14; TEMP 36.6; O2SAT 99
[2023-06-06] MEDS: Piperacil/Tazobactam 3.375 GM in 0.9% Normal Saline (50mL MB+) 50 ML IV (05:20)
[2023-06-06 07:08] LABS: HEPATITIS B SURFACE AG Negative (Negative); Hep C Antibodies Non Reactive (Non Reactive); Hepatitis A IgM Antibody Negative (Negative); Hepatitis B Core AB IgM Negative (Negative)
[2023-06-06 07:10] LABS: Absolute Lymphocyte Count 1.53 X10^3/uL (0.83-4.51); Absolute Neutrophil Count 7.1 X10^3/uL (2.0-7.7); Basophil# 0.03 X10^3/uL; Basophil% 0.3 % (0-1); Hematocrit 44.1 % (37-47); Hemoglobin 13.3 g/dL (12.0-15.0); Lymphocyte # 1.53 X10^3/ul (0.83-4.51); Lymphocyte % 16.8 % (19-41); Mean Corp Hgb Conc 30.2 g/dL (32-36); Mean Corpuscular Hgb 30.2 pg (27.0-32.0); Mean Platelet Vol. 9.1 fl (6.2-12.0); Monocyte% 4.4 % (0-10); NRBC Flagged by Analyzer 0 % (0-5); Platelet Count 356 K/mm3 (150-450); RBC Distribution Width CV 11.9 % (11.6-14.6); RBC Distribution Width SD 43.8 fl (35.1-43.9); Red Blood Count 4.41 M/mm3 (4.2-5.4); White Blood Count 9.1 K/mm3 (4.4-11.0)
--- NOTE | 2023-06-06 07:28 | DCINST_ITS ---
Discharge Instructions Diet Discharge Diet: No restrictions Activity Discharge Activity: Return to Normal Activity Weight Bearing Status: Weight bearing as tolerated Dressing / Incision Call your doctor if you observe: Fever of 101 or Higher, Coldness, Increased Pain, Numbness or Tingling, Change in Color, Inability to urinate, Inability to have a bowel movement, Using more than 1 pad per hour, Shortness of breath, Dizziness, Fainting spells, Swelling in the ankles, Chest pain, Prolonged hiccupping, Increased palpitations (irregular heartbeat) and Calf discomfort Follow Up Care When: IN 2 WEEKS Test Results: Test results from this visit will be discussed in further detail at your follow- up appointment, if applicable. Discharge Plan Admission Admit Date/Time: 06/05/23 01:34 Primary Reason for Your Visit: Cholelithiasis with choledocholithiasis biliary colic Attending Provider: Jose Renae Primary Care Provider: Martin Lin Consulting Providers: Hu Kunz; Vinh Umaña Discharge Orders/Prescriptions Prescriptions: New ondansetron 4 mg tablet,disintegrating 4 mg PO Q6H PRN (Reason: nausea and vomiting) Qty: 20 0RF No Action NK Referrals / Follow Up: Hu Kunz MD [Med Staff - Active Staff] - 06/09/23 (Following Dr. Kunz on Thursday in OR for elective lap cholecystectomy) Martin Lin DO [Primary Care Provider] - Camilo Larson DO [Med Staff - Active Staff] - Within 1 Month Disposition Disposition (needs filled in before D/C Order can be placed): Home, Self Care
--- NOTE | 2023-06-06 07:38 | PCM.PN.SRG ---
Subjective Subjective Patient denies any abdominal pain resolved after ERCP. Objective Data Objective Data Vital Signs: Vital Signs Temp Pulse Resp BP Pulse Ox O2 Del Method 97.9 F 66 14 100/69 99 Room Air 06/06/23 05:00 06/06/23 05:00 06/06/23 05:00 06/06/23 05:00 06/06/23 05:00 06/06/23 05:00 Oxygen Delivery Method Room Air Weight: 202 lb 13.204 oz Body Mass Index (BMI) 37.3 Intake & Output: Intake and Output for Last 24 Hours 06/04/23 06/05/23 06/06/23 23:59 23:59 23:59 Intake Total 3081.66 / 3881.66 2330 / 2330 Balance 3081.66 / 3881.66 2330 / 2330 Lab / Micro Data 06/06/23 06:24 06/06/23 06:24 Labs: Laboratory Results - last 24 hr 06/05/23 04:25: Hepatitis A IgM Ab Negative, Hep Bs Antigen Negative, Hep B Core IgM Ab Negative, Hepatitis C Ab (EIA) Non Reactive, Hep C Ab Comment Comment 06/06/23 06:24: WBC 9.1, RBC 4.41, Hgb 13.3, Hct 44.1, MCV 100.0 H D, MCH 30.2, MCHC 30.2 L D, RDW Std Deviation 43.8, RDW Coeff of Fatmata 11.9, Plt Count 356, MPV 9.1, Immature Gran % (Auto) 0.500, Neut % (Auto) 78.0 H, Lymph % (Auto) 16.8 L, Owsley % (Auto) 4.4, Eos % (Auto) 0.0, Baso % (Auto) 0.3, Absolute Neuts (auto) 7.1, Absolute Lymphs (auto) 1.53, Nucleated RBC % 0 Radiography Diagnostic Testing: Radiology Impression MRCP 06/05/23 01:43 IMPRESSION: 1. Cholelithiasis/multiple gallstones 2. There is also moderate dilatation of the common bile duct measuring up to 1.30 cm in diameter and a single small filling defect seen at the terminal in of the CBD/duodenal junction either representing a stone or fold measuring 6.5 mm, see image 6/60 series 10 on the MRCP reconstructions. Otherwise there are no filling defects in the remaining aspects of the CBD. Electronically Signed: Salvador Shoemaker MD at 11:47 EST , Endo Retro Cholangiopancreatogram 06/05/23 17:20 IMPRESSION: Balloon sphincterotomy and stent placement. Electronically Signed: Manuel Copeland MD at 18:28 EST , Physical Exam Const oriented x3 and no apparent distress Resp normal respiratory effort Cardio regular rate GI soft to palpation and non-tender Inspection: Negative for abdominal distention Assessment & Plan Assessment/Plan (1) Elevated liver enzymes: PLAN: Patient is able to tolerate diet okay to DC recommend avoiding fatty or greasy foods. Patient is on the schedule for Thursday for laparoscopic cholecystectomy with Dr. Kunz Charges/Coding Visit Charges Inpatient E&M: 89125 Subs Hosp L2
[2023-06-06 07:51] LABS: ALB/GLOB Ratio 0.9 RATIO (0.9-2.4); AST(SGOT) 119 U/L (15-37); Alanine Aminotransfer ALT/SGPT 469 U/L (13-56); Albumin, Serum 3.2 g/dL (3.2-5.0); Alkaline Phosphatase 97 U/L (45-117); Anion Gap 3 (5-15); BUN 5 mg/dL (7-18); BUN/Creat Ratio 9.5 RATIO (10-20); Calcium,Total 8.3 mg/dL (8.5-10.1); Chloride 115 mmol/L (98-107); Creatinine, Serum 0.52 mg/dL (0.55-1.02); EST Glomerular Filtration Rate 150 mL/min (>60); Est Glom Filt Rate - Afr Amer 182 mL/min (>60); Estimated Creatinine Clearance 129.67 ml/min; Globulin 3.5 g/dL (2.2-4.2); Glucose 98 mg/dL (74-106); Potassium 4.1 mmol/L (3.5-5.1); Protein, Total 6.7 g/dL (6.4-8.2); Sodium Level 139 mmol/L (136-145)
[2023-06-06 08:10] VITALS: O2SAT 97
[2023-06-06 08:15] VITALS: BP 107/71; PULSE 50; RESP 16; TEMP 36.6; O2SAT 99
--- NOTE | 2023-06-06 08:16 | PCM.DC.SUM ---
Providers Date of Admission: 06/05/23 Date of Discharge: 06/06/23 Primary Care Physician: Dr. Martin Lin, Consultations 06/05/23 01:44 Consult: Gastroenterology Routine Consulting Provider: [facility] Reason for Consult: Right upper quadrant pain with elevated liver function tests EMERGENT Consult: No Notified: Yes Date Notified: 06/05/23 Time Notified: 01:09 Method of Notification: ED Physician Initiated 06/05/23 01:53 Consult: General Surgery Routine Consulting Provider: Hu Kunz Reason for Consult: Right upper quadrant pain with elevated LFTs EMERGENT Consult: No Notified: Yes Date Notified: 06/05/23 Time Notified: 01:45 Method of Notification: ED Physician Initiated Reason For Visit: RIGHT UPPER QUADRANT PAIN WITH ELEVATED LFTS Diagnosis Discharge Diagnosis (1) Right upper quadrant pain: Status: Acute Code(s): R10.11 - Right upper quadrant pain (2) Elevated liver enzymes: Status: Acute Code(s): R74.8 - Abnormal levels of other serum enzymes Plan 28-year-old female was admitted for right upper quadrant abdominal pain for about 1 day prior to admission with history of gallbladder colic being followed by [facility].. Pain was of sudden abrupt onset similar to the previous episodes of gallbladder colic. No associated fever chills nausea vomiting or use of Tylenol. Ultrasound shows cholelithiasis without evidence of cholecystitis. The patient had history of gallbladder colic had about 2-3 episodes of the gallbladder colic in the past. 1. Right upper quadrant pain, gallbladder colic with cholelithiasis and choledocholithiasis: Total bilirubin 1.3, with AST of 618 and ALT of 570 present on admission.- Admit to general medical floor. Continue empiric IV Zosyn begun in the ER. Patient is on pain control with IV morphine. MRCP suggestive of stone at terminal CBD at junction of duodenum. Plan for ERCP with possible stent. Unfortunately will happen late around 4 to 5 PM and might return to room around 7-8 PM therefore advised to stay overnight for postprocedure vomiting nausea or other side effects. Discussed with surgeon. Plan for discharge after ERCP and then outpatient surgery preferably on Thursday. Serum Tylenol level normal. 06/06: Patient had ERCP yesterday. CBD stone was extracted after biliary sphincterotomy. Temporary stent inserted. Patient does not have abdominal pain tenderness. No nausea or vomiting. Plan for elective lap whit on 02/06/2023. Seen by the surgeon. 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 Follow-up in GI clinic in 1 month. Labs reviewed. Liver chemistry normal limit. Avoid greasy or fatty food. No need for antibiotic 2. Hypokalemia of 3.4 mmol/L present on admission -repeat potassium. 3. Obesity with a BMI of 37.7 this admission - Weight loss will be recommended. Check TSH. 4. DVT prophylaxis - Patient will only have SCDs placed for now. Discussed with the patient near the bedside. Discharge medication reconciliation done. Discharge follow-up instructions completed. Discharge process discussed with the patient and all questions were answered to patient's satisfaction. Follow with PCP in 1 to 2 weeks Total time spent, exact 35 minutes on discharge meds reconciliation, examination, coordination of care with nurses and ancillary staff, review of imaging and blood test and discussion with the patient on follow-up instructions. Medications at Discharge Home Medications NK 06/04/23 ondansetron 4 mg disintegrating tablet 4 mg PO Q6H PRN nausea and vomiting #20 tabs 06/06/23 Physical Exam Narrative Seen and examined. No abdominal pain or tenderness. Patient tolerated soft diet. Physical exam General: Alert, Oriented x3, Cooperative HEENT: Atraumatic, PERRLA, EOMI, Normocephalic Oral: No Gingival or Mucosal Lesions/ Ulcerations Neck: Supple, No JVD, Negative Carotid Bruits Lungs: Air entry diminished in bilateral lung bases. No crepitation/rhonchi Cardiovascular: Regular rate, Regular Rhythm, Normal S1, Normal S2, No murmurs Abdomen: Bowel Sounds Present, Soft, no tenderness guarding or rigidity. No palpable mass. : No renal angle tenderness. No suprapubic tenderness. Extremities: No edema, Capillary Refill Less than 3 Seconds Skin: No rashes, No breakdown Musculoskeletal: No Tenderness to Palpation of Joints or Extremities Neurological: Cranial nerves II-XII grossly intact, DTR 2+/4. No acute focal neurological deficit. Psych/Mental Status: Normal Affect, Appropriate. Weight / BMI Weight Weight: 202 lb 13.204 oz Body Mass Index (BMI) 37.3 ABG / Lab / Microbiology Data 06/06/23 06:24 06/06/23 06:24 Laboratory: Laboratory Results - last 24 hr 06/05/23 04:25: Hepatitis A IgM Ab Negative, Hep Bs Antigen Negative, Hep B Core IgM Ab Negative, Hepatitis C Ab (EIA) Non Reactive, Hep C Ab Comment Comment 06/06/23 06:24: WBC 9.1, RBC 4.41, Hgb 13.3, Hct 44.1, MCV 100.0 H D, MCH 30.2, MCHC 30.2 L D, RDW Std Deviation 43.8, RDW Coeff of Fatmata 11.9, Plt Count 356, MPV 9.1, Immature Gran % (Auto) 0.500, Neut % (Auto) 78.0 H, Lymph % (Auto) 16.8 L, Norton % (Auto) 4.4, Eos % (Auto) 0.0, Baso % (Auto) 0.3, Absolute Neuts (auto) 7.1, Absolute Lymphs (auto) 1.53, Nucleated RBC % 0 Radiography Diagnostic Testing: Radiology Impression MRCP 06/05/23 01:43 IMPRESSION: 1. Cholelithiasis/multiple gallstones 2. There is also moderate dilatation of the common bile duct measuring up to 1.30 cm in diameter and a single small filling defect seen at the terminal in of the CBD/duodenal junction either representing a stone or fold measuring 6.5 mm, see image 6/60 series 10 on the MRCP reconstructions. Otherwise there are no filling defects in the remaining aspects of the CBD. Electronically Signed: Salvador Shoemaker MD at 11:47 EST , Endo Retro Cholangiopancreatogram 06/05/23 17:20 IMPRESSION: Balloon sphincterotomy and stent placement. Electronically Signed: Manuel Copeland MD at 18:28 EST , D/C Instructions Discharge Diet: No restrictions Weight Bearing Status: Weight bearing as tolerated Call your doctor if you observe: Fever of 101 or Higher, Coldness, Increased Pain, Numbness or Tingling, Change in Color, Inability to urinate, Inability to have a bowel movement, Using more than 1 pad per hour, Shortness of breath, Dizziness, Fainting spells, Swelling in the ankles, Chest pain, Prolonged hiccupping, Increased palpitations (irregular heartbeat) and Calf discomfort When: IN 2 WEEKS Meaningful Use Info Meaningful Use Diagnoses (Choose all that apply): None applicable Discharge Plan Admission Admit Date/Time: 06/05/23 01:34 Primary Reason for Your Visit: Cholelithiasis with choledocholithiasis biliary colic Attending Provider: Jose Renae Primary Care Provider: Martin Lin Consulting Providers: Hu Kunz; Vinh Umaña Discharge Orders/Prescriptions Prescriptions: New ondansetron 4 mg tablet,disintegrating 4 mg PO Q6H PRN (Reason: nausea and vomiting) Qty: 20 0RF No Action NK Referrals / Follow Up: Hu Kunz MD [Med Staff - Active Staff] - 06/09/23 (Following Dr. Kunz on Thursday in OR for elective lap cholecystectomy) Martin Lin DO [Primary Care Provider] - Camilo Larson DO [Med Staff - Active Staff] - Within 1 Month Disposition Disposition (needs filled in before D/C Order can be placed): Home, Self Care Charges/Coding Visit Charges Inpatient E&M: 29598 Disch Hosp >30min
== END 2023-06-06 09:44 | disposition home or self-care (01) | DRG 446 ==
LOC: ED 22:17 → MS3 06-05 01:42
PROVIDERS: Internal Medicine Gastroenterology; Admitting Provider Internal Medicine; Emergency Provider Student in an Organized Health Care Education/Training Program; PCP Family Medicine; Visit Provider Internal Medicine
PROC: 0FC98ZZ Extirpation of Matter from Common Bile Duct, Via Natural or Artificial Opening Endoscopic (ICD-10-PCS; CPT 43260; principal; 2023-06-05 16:05)
DX: K80.70 Calculus of gallbladder and bile duct without cholecystitis without obstruction (principal); E66.9 Obesity, unspecified; E87.6 Hypokalemia; K83.8 Other specified diseases of biliary tract; R74.8 Abnormal levels of other serum enzymes; Z68.37 Body mass index [BMI] 37.0-37.9, adult
CPT/HCPCS: 36415; 74181; 74330; 76000; 76705; 80053; 80061; 80074; 80329; 81001; 83690; 84443; 84703; 85025; 93005; 99284; J7050; J7120; A4216; G0480; J2405

== ENCOUNTER 2023-06-09 10:01 | Day surgery (SDC) | payer SELFPAY, OTHER ==
[2023-06-09] VITALS (9 sets, daily range): BP systolic 111–139; BP diastolic 74–96; PULSE 70–83; RESP 14–18; TEMP 36–36.8; O2SAT 95–100; BMI 37.6
--- NOTE | 2023-06-09 | GALL_PTH ---
PATIENT: LAKEISHA [place]LAYTON [place] [facility] [id number] AGE/SX: 28/F ROOM: RE06/09/[address]: Dr. Hu Kunz MD : 1995 BED: DIS: 06/09/2023 SPEC #: [id number] RECD: 06/09/23 14:25 STATUS: HENRY JEANETH #: [id number] OJ: 06/09/23 00:[address]: Hu Kunz DEPT: SURGICAL PATHOLOGY RECD BY: Mattie Jimenez ENTERED: 06/09/23 14:25 SP TYPE: RUSS ANDERSON DR: Dr. Martin Lin DO Tissues: Gallbladder, NOS Procedures: Surgery Specimen Level III HEADER OPERATION: Laparoscopic cholecystectomy with IOC PRE-OP DIAGNOSIS: Elevated liver enzymes TISSUE SUBMITTED: Gallbladder MICROSCOPIC DIAGNOSIS Gallbladder, cholecystectomy: Chronic cholecystitis and cholelithiasis. AM:elvia 06/10/2023 MICROSCOPIC DESCRIPTION Slides are reviewed. GROSS DESCRIPTION Received is one container labeled with the patient's name and designated gallbladder. The specimen consists of a gallbladder measuring 9.0 x 2.5 x 2.5 cm. The external surface is smooth and glistening. Focally, it is granular, hemorrhagic and contains cautery artifact. The lumen of the gallbladder contains yellow-green mucoid bile and multiple yellow calculi ranging in size from <0.1 to 1.0 cm in greatest dimension. The mucosa is bile-stained and without any mass lesions. The gallbladder wall averages 0.2 cm in thickness and is free of mass lesions. [employer] Librarian sections of the gallbladder and the cystic duct at margin of resection are submitted in one cassette. / AM:elvia 06/09/2023 TC:3 CPT: 59963
--- NOTE | 2023-06-09 10:14 | EKG12_ITS ---
Test Reason : PRE-OP Blood Pressure : / mmHG Vent. Rate : 065 BPM Atrial Rate : 065 BPM P-R Int : 134 ms QRS Dur : 090 ms QT Int : 436 ms P-R-T Axes : 029 029 049 degrees QTc Int : 453 ms Normal sinus rhythm Normal ECG When compared with ECG of 05-JUN-2023 01:56, No significant change was found Confirmed by ELENA ROJAS, KAREN ([id number]), metropolitan editor ALEJANDRA MENSAH ([id number]) on 06/17/2023 1:09:47 PM Referred By: Hu Kunz Confirmed By:KAREN PARKER MD
[2023-06-09 10:37] LABS: Internal QC Validated? YES +Cl - CLEAR BKGD; Pregnancy, Urine Negative Negative
[2023-06-09] MEDS: Lactated Ringers 1,000 ML 15 ML IV ×2 (10:43→13:52)
--- NOTE | 2023-06-09 10:45 | HP.PCM.SX_ITS ---
HPI - General HPI Narrative LAKEISHA CLAYTON, is a 28 F who presents for elective cholecystectomy. The patient was recently admitted with choledocholithiasis and had an ERCP with stent. She is here for elective cholecystectomy. She says she is feeling fine and does not have any issues except for some mild pain when eating. [facility] Medical History (Updated 06/08/23 @ 10:43 by Maria Isabel Noble) Chest pain Heartburn Injury of head and neck Non-smoker Syncope Home Medications ondansetron 4 mg disintegrating tablet 4 mg PO Q6H PRN nausea and vomiting #20 tabs 06/06/23 [Rx Last Taken Unknown] Allergy/AdvReac Type Severity Reaction Status Date / Time No Known Allergies Allergy Verified 06/09/23 10:31 Surgical History (Updated 06/08/23 @ 10:43 by Maria Isabel Noble) History of ERCP Social History Smoking Status: Never smoker ROS Constitutional Constitutional: Denies anorexia or fatigue Eyes Eyes: Denies blurry vision Cardiovascular Cardiovascular: Denies chest pain Respiratory/Chest Respiratory/Chest: Denies cough or dyspnea Gastrointestinal Gastrointestinal: Reports abdominal pain; Denies melena, nausea or vomiting Genitourinary Genitourinary: Denies change in urinary stream or urinary urgency Musculoskeletal Musculoskeletal: Denies abnormal gait Integumentary Integumentary: Denies jaundice Neurologic Neurologic: Denies dizziness Psychiatric Psychiatric: Denies anxiety Endocrine Endocrinology: Denies flushing Vital Signs Vital Signs Vital Signs: 06/09/23 10:32 06/09/23 10:32 Temperature 96.8 F L Temperature Source Temporal Pulse Rate 74 Respiratory Rate 16 Respiratory Pattern Normal Blood Pressure 111/78 Blood Pressure Mean 89 Blood Pressure Source Monitor Blood Pressure Position Semi-Fowlers Blood Pressure Location Left Arm Pulse Ox 99 Oxygen Delivery Method Room Air Weight Weight: 205 lb 11.06 oz Body Mass Index (BMI) 37.6 Physical Exam Const oriented x3 and no apparent distress Resp normal respiratory effort Cardio regular rate and regular rhythm GI soft to palpation and non-tender Results Lab / Micro Data Labs: Laboratory Results - last 24 hr 06/09/23 10:28: Urine Test Negative Assessment & Plan Assessment/Plan (1) Elevated liver enzymes: PLAN: Patient was recently admitted with choledocholithiasis and underwent ERCP with stent placement. She is here for cholecystectomy to prevent further episodes in the future. I discussed cholecystectomy with her in great detail. I discussed the procedure in detail with the patient. I discussed the risks, benefits, and alternatives of the procedure. I discussed the risks including but not limited to bleeding, infection, injury to surrounding organs such as the liver, bile duct, bowels. I did discuss the possibility of having to convert to an open procedure as well as the possibility that if any injuries occurred this may necessitate further surgery at a tertiary care center. Hu Kunz MD Pager: [facility] [address] [place] [address], [address] [place] [address] Office:
[2023-06-09] MEDS: Cefotetan 2 GM in 0.9% NS 100 ML IV (11:45)
--- NOTE | 2023-06-09 12:22 | RAD_ITS ---
STUDY: INTRAOPERATIVE CHOLANGIOGRAM. REASON FOR EXAM: Female, 28 years old. Laparoscopic cholecystectomy. FLUOROSCOPY TIME (if supplied): ( 22 seconds ) minutes/seconds. 28.3 mGy TECHNIQUE: The surgeon. Performed intraoperative cholangiogram. Imaging was provided. COMPARISON: None. FINDINGS: Mild dilatation of the common bile duct. Free flow of contrast is seen entering the duodenum. A small intraluminal filling defect is seen in its distal portion. This may represent choledocholithiasis. RAD/Cholangiogram/ O R,Initial IMPRESSION: Dilated common bile duct without filling defects seen in the distal portion of the common bile duct. Free flow of contrast into duodenum. Electronically Signed: Jose Crouch MD at 12:56 EST ,
[2023-06-09] MEDS: Bupivacaine 0.25% 30 ML Vial (12:48)
--- NOTE | 2023-06-09 13:10 | OP.PCM_ITS ---
Report of Operation Date of Procedure: 06/09/23 Pre-Operative Diagnosis: Cholelithiasis and choledocholithiasis Post-Operative Diagnosis: Same Surgery/Procedure Performed:: Laparoscopic cholecystectomy with cholangiogram Type of Anesthesia: General/Regional Specimen's removed: Gallbladder and contents Estimated Blood Loss (mL): 10 Description of Procedure: After obtaining informed consent patient was brought back to the operating room. General anesthesia was induced. The abdomen was prepped and draped in usual sterile fashion. A small midline incision was made superior to the umbilicus and deepened to the level of fascia. The fascia was elevated and incised. Next the peritoneum was elevated and incised in the same fashion. Finger sweep was performed and the Eastman trocar was placed into the abdomen. The balloon was inflated. The abdomen was inflated to 15 mmHg. Next a camera was introduced into the abdomen and the abdomen was inspected. Next under direct visualization three 5-mm ports were placed one subxiphoid and 2 subcostal. Next the gallbladder was elevated and retracted toward the right shoulder. The peritoneum was stripped from the gallbladder. The infundibulum was located and retracted laterally. Next the triangle of Calot was dissected and the cystic duct and cystic artery were identified. Cholangiograms were performed. The K umar clamp was used to clamp across the infundibulum and the catheter needle was inserted into the gallbladder. Under fluoroscopy contrast was instilled into the gallbladder and the common duct, cystic duct as well as proximal hepatic ducts were identified. There was good filling of the duodenum. There was 1 filling defect noted in the common bile duct along with the stent. The clamp was removed as well as the needle and the infundibulum was grasped once more. Three hemolock clips were placed across the cystic duct. The cystic duct was then divided leaving 2 clips on the stump. The cystic artery was clipped and divided in the same fashion. The hook cautery was then used to take the gallbladder off of the gallbladder bed. Hemostasis was obtained. Gallbladder fossa was irrigated and no active bleeding or bile leakage was noted. Next the camera was introduced in the subxiphoid port. An Endopouch bag was placed through the umbilical port and the gallbladder was placed into it. The gallbladder was then removed through the umbilical incision. The camera was then reinserted through the umbilical port. The gallbladder fossa was inspected once more and noted to be hemostatic with no leaking bile. The abdomen was suctioned dry. The 5 mm ports were removed under direct visualization. The umbilical port was then removed and the air was removed from the abdomen. Next using an 0 Vicryl suture the umbilical fascia was closed in a [id number] fashion. The umbilical port site was irrigated local anesthetic was administered to all the incisions. All the incisions were closed with interrupted subcuticular 4-0 Monocryl sutures followed by Steri-Strips and dressings. The patient was awoken and taken to PACU in stable condition. Admit VTE Documentation VTE Mechan Device Prophylaxis: SCD's
--- NOTE | 2023-06-09 13:11 | DCINST_ITS ---
Discharge Instructions Procedure Gallbladder Diet Discharge Diet: Light diet - advance as tolerated Activity Discharge Activity: May Not Drive (for 2-3 days or while taking narcotic pain medications.) and - (Do not drive, work heavy equipment or sign legal documents for 24 hours.) May shower in (days): 1 Lifting Restrictions: 20 lbs for 2 weeks Additional Activity Instructions:: Pain medication may cause nausea. You should typically eat light foods as you take your pain medications. Pain medication may also cause constipation. If this is a problem for you, please discuss with your doctor. Dressing / Incision Call your doctor if your incision/area has: Continuous Slow Oozing, Sudden Increased Bleeding, Increased Pain/ Swelling, Increased Redness and Foul Smelling Discharge Call your doctor if you observe: Fever of 101 or Higher Suture Line Care: Avoid Pulling/Pushing and Avoid Pinching/Bending Remove Dressing in: 2 days Additional Dressing/Incision Instructions:: Leave operative bandaids on for 2 days. When you remove dressing, leave Steri-Strips on until your follow-up appointment, or until the Steri-Strips fall off on their own. Follow Up Care Please Follow Up With: Hu Kunz MD When: Please call to schedule 2 week follow up appointment. [phone] Test Results: Test results from this visit will be discussed in further detail at your follow- up appointment, if applicable. Discharge Plan Admission Attending Provider: Hu Kunz Primary Care Provider: Martin Lin Instructions Additional Instructions / Restrictions: Alternate ibuprofen and Tylenol for pain control, oxycodone for breakthrough. Discharge Orders/Prescriptions Prescriptions: New acetaminophen 325 mg Tablet 650 mg PO Q4H PRN PRN (Reason: Pain Or Fever) Qty: 0 0RF oxycodone 5 mg Tablet 5 - 10 mg PO Q4H PRN PRN (Reason: Pain Score 4-10/10) 5 Days Qty: 20 0RF No Action ondansetron 4 mg tablet,disintegrating 4 mg PO Q6H PRN (Reason: nausea and vomiting) Qty: 20 0RF Referrals / Follow Up: Martin Lin DO [Primary Care Provider] - Disposition Disposition (needs filled in before D/C Order can be placed): Home, Self Care
[2023-06-09] MEDS: Acetaminophen 325 MG Tablet 650 MG PO (15:47)
== END 2023-06-09 17:08 | disposition home or self-care (01) ==
LOC: SDC 10:04 → AC 10:05
PROVIDERS: Anesthesiology; PCP Family Medicine; Referring Provider Surgery; Visit Provider Surgery
PROC: (CPT 47610; principal; 2023-06-09 11:20)
DX: K80.70 Calculus of gallbladder and bile duct without cholecystitis without obstruction (principal); R74.8 Abnormal levels of other serum enzymes
CPT/HCPCS: 47563; 00790; 74300; 76000; 81025; 88304; 93005; J7120; J2405

== ENCOUNTER 2023-09-21 09:05 | Day surgery (SDC) | payer OTHER, SELFPAY ==
[2023-09-21] VITALS (8 sets, daily range): BP systolic 106–120; BP diastolic 74–94; PULSE 74–108; RESP 16–18; TEMP 36.5–36.6; O2SAT 95–100; BMI 38.5
--- NOTE | 2023-09-21 09:22 | EKG12_ITS ---
Test Reason : PREOP Blood Pressure : / mmHG Vent. Rate : 072 BPM Atrial Rate : 072 BPM P-R Int : 132 ms QRS Dur : 092 ms QT Int : 408 ms P-R-T Axes : 046 014 039 degrees QTc Int : 446 ms Normal sinus rhythm Normal ECG No previous ECGs available Confirmed by IRASEMA ROJAS, VALENTE ([id number]), purchase request editor ALEJANDRA MENSAH ([id number]) on 09/28/2023 2:15:11 PM Referred By: Martin Lin Confirmed By:STEVEN VILLALPANDO MD
--- OUTSIDE RECORDS SUMMARY | 2023-09-21 09:29 | XMS RPT_ITS | CCD ---
Author Name Unknown Address [id number] [place] [address] Organization [facility] Care Team Providers Care Photostatic Copy Maker Name Role Phone PROVIDER, UNKNOWN Admitting Unavailable PROVIDER, UNKNOWN Attending Unavailable MURIEL AMBROSIO DO Admitting Unavailable MURIEL AMBROSIO DO Primary Care Unavailable MURIEL AMBROSIO DO Attending Unavailable RADHA JOHNSON MD Consulting Unavailable RADHA JOHNSON MD Referring Unavailable PROVIDER, UNKNOWN Consulting Unavailable CARO BUENO MD Admitting Unavailable VENSILCARO MD Primary Care Unavailable CARO BUENO MD Attending Unavailable RADHA JOHNSON MD Consulting Unavailable RADHA JOHNSON MD Referring Unavailable PROVIDER, UNKNOWN Consulting Unavailable IRVIN YATES Admitting Unavailable IRVIN YATES Primary Care Unavailable IRVIN YATES Attending Unavailable RADHA JOHNSON MD Consulting Unavailable PROVIDER, UNKNOWN Consulting Unavailable MURIEL AMBROSIO Referring Unavailable ALEJANDRA MAST Admitting Unavailable TANK REYNOLDS Attending Unavailable MC ESPANA Consulting Unavailable Problems Active Problems Problem Classification Problem Date Documented Da te Episodic/Chronic Abdominal pain (2 sources) Right upper quadrant pain; Translations: [Right upper quadrant pain] Onset: 04-07-2023 Episodic Pancreatic disorders (not diabetes) (3 sources) Biliary acute pancreatitis without necrosis or infection; Translations: [Acute pancreatitis without necrosis or infection, unspecified] Onset: 04-07-2023 Episodic Past or Other Problems Problem Classification Problem Date Documented Date Episodic/Chronic Biliary tract disease (3 sources) Calculus of gallbladder without cholecystitis without obstruction; Translations: [Calculus of gallbladder without cholecystitis without obstruction] Onset: 10-06-2022 Episodic Results Test Name Value Interpretation Reference Range Facil ity Encounters Encounter Date Encounter Type Care Provider Facility Start: 04-07-2023 End: 04-09-2023 Evaluation and management of inpatient MURIEL AMBROSIO Facility:[id number] Start: 04-07-2023 End: 04-07-2023 Emergency department patient visit MURIEL DO DIDUR [facility] Start: 10-06-2022 End: 10-06-2022 ambulatory IRVIN YATES [facility] Start: 10-05-2022 End: 10-05-2022 Emergency department patient visit CARO BUENO [facility] Start: 04-21-2019 End: 04-21-2019 Patient encounter procedure UNKNOWN PROVIDER Facility:[facility] Procedures Date Procedure Procedure Detail Performing Clinician Start: 04-07-2023 Urinalysis MURIEL NICHOLS R Payers Date Payer Category Payer Unknown [id number] 2019 Unknown 1997 Unknown [id number] 1997 Unknown [id number] 1997 Unknown [id number] 1997 Unknown [id number] Unknown 65 Progress note 04-09-2023 Note Date & Type Note Facility 04-09-2023 Note HNO ID: [id number] Author: Tank Reynolds MD Service: Hospital Medicine Author Type: Physician Type: Progress Notes Filed: 04/09/2023 5:22 PM Note Text: DEPARTMENT OF HOSPITAL MEDICINE PROGRESS NOTE SERVICE DATE: 04/09/2023 SERVICE TIME: 4:52 PM Hospital Medicine/Primary Attending: Tank Reynolds MD Subjective INTERVAL HPI: When seen at bedside today, the patient was laying in bed. She is in no acute pain. She tells me that she feels hungry and she wants to try to eat. Her significant other was present at bedside, and the plan of care was discussed with him. MEDICATIONS: Reviewed Objective PHYSICAL EXAM: BP 117/67 Pulse 56 Temp (Src) 98.2 (Oral) Resp 18 Ht 5' 2 (1.58m) Wt 205 lb 11.2 oz (93.3kg) SpO2 99% BMI 37.61 kg/(m2). O2 Therapy: Room Air Physical Exam Performed General: Laying in bed, in no distress HEENT: Head atraumatic, PERRLA, no icterus Cardiovascular: S1-S2 normal, no murmurs Chest: Bilateral air entry equal, chest clear bilaterally , no crackles distinguished Abdomen: soft, non tender Neuro: Aox3, moving all 4 extremities well Extremities: no edema Lines, Drains, and Airways Line Duration Peripheral 04/07/23 1200 External Facility Right Antecubital 22 Gauge 2 days DATA: Diagnostic tests reviewed for today's visit: Most recent labs and imaging results. Assessment/Plan Abdominal pain Acute pancreatitis Cholelithiasis DVT prophylaxis-Lovenox. CODE STATUS/status of full code. This is a 27-year-old female, with a prior medical history as follows: History of cholelithiasis and pancreatitis in the past. As of this time, the patient presents to the ER with a chief complaint of abdominal pain. Lipase on admission was high, CT abdomen pelvis did not show any abnormalities. The patient was admitted due to concern for acute pancreatitis. MRCP was done on 04/08/2023, which showed results as follows: IMPRESSION: 1. Uncomplicated cholelithiasis. No biliary obstruction. CT abdomen pelvis done on 04/07/2023 showed the patient was evaluated by GI. Per GI recommendations, there is no indication for ERCP. Today, the patient is requesting for a surgical evaluation; to determine if she might benefit from cholecystectomy. Presently, general surgery will be consulted. - Diet will be started at this time. - IV fluids can be discontinued. - General surgery has been consulted and their recommendations are pending. Medication and Non-Pharmacologic VTE Prophylaxis/Anticoagulants Anticoagulant AND Antiplatelet Medications (From admission, onward) Start Dose Route Frequency Last Action Ordered Stop 04/07/23 1630 enoxaparin 40 mg injection (LOVENOX) (enoxaparin injection (LOVENOX)) 40 mg SUBCUTANEOUS EVERY 24 HOURS Given, 04/07 1628 04/07/23 1609 -- 04/07/23 1600 activity - mobilize patient (mo,mn) Plan of care discussed with: SIGNATURE: Tank Reynolds MD PATIENT NAME: Tran Blackwell DATE: April 09, 2023 TIME: 4:52 PM etx [id number] [facility] Progress note 04-08-2023 Note Date & Type Note Facility 04-08-2023 Note HNO ID: [id number] Author: Iglesia Deluca RT(R) Service: Radiology Author Type: Technologist Type: Progress Notes Filed: 04/08/2023 3:20 PM Note Text: Summary: MRI Radiology Service Progress Note PATIENT NAME: Tran Blackwell DATE OF SERVICE: April 08, 2023 TIME: 3:20 PM PATIENT IDENTITY VERIFICATION COMPLETED USING TWO (2) IDENTIFIERS: Name and Date of confirmed by patient verbally and Name and Date of confirmed by identification band. FALL SCREENING: Has the patient had 2 falls in the last year or 1 fall with injury or currently using an Ambulatory Assistive Device (Walker, Cane, Wheelchair, Crutches, etc.)? Inpatient: Screened on floor PATIENT GENDER DATA: Female. status: : No status: NO. PATIENT RELEVANT IMPLANT DATA REVIEWED: Yes RADIOLOGY DEPARTMENT: MR; Exam(s) Completed: Body: MRCP PERIPHERAL IV DATA: Not applicable SIGNED BY: RT Kortney(R) April 08, 2023 3:20 PM [facility] Progress note 04-08-2023 Note Date & Type Note Facility 04-08-2023 Note HNO ID: [id number] Author: Maco Flores MD Service: Hospital Medicine Author Type: Physician Type: Progress Notes Filed: 04/08/2023 1:37 PM Note Text: INPATIENT PROGRESS NOTE SERVICE DATE: 04/08/2023 SERVICE TIME: 1:35 PM PRIMARY SERVICE: Hospital Medicine CHIEF COMPLAINT: Abdominal pain Subjective Continues to have on and off abdominal pain no nausea vomiting fever chills Current Facility-Administered Medications Medication Dose Route Frequency NaCl 0.9% iv flush bag 20 mL INTRAVENOUS PRN lactated ringers iv infusion 150 mL/hr INTRAVENOUS CONTINUOUS enoxaparin 40 mg injection (LOVENOX) 40 mg SUBCUTANEOUS q 24 HR Objective PHYSICAL EXAM: BP 108/62 Pulse 65 Temp (Src) 98.1 (Oral) Resp 18 Ht 5' 2 (1.58m) Wt 207 lb (93.9kg) SpO2 97% BMI 37.85 kg/(m2). O2 Therapy: Room Air General: Patient is alert and oriented x3 and is in no acute respiratory distress. HEENT no eye congestion no ear discharge. Neck is supple no JVD. Lungs: Clear to auscultation, no wheezing, rales, or rhonchi. Cardiac: S1-S2 within normal limits Abdomen: Soft, mild epigastric abdominal discomfort no signs of acute abdomen, nondistended. Extremities: No cyanosis Skin: No rashes or breakdown. Neurologic: Cranial nerves from II-XII intact grossly. Psych normal affect. Lymphatic system, no submandibular or anterior cervical lymphadenopathy. DATA: LABORATORY TESTS: CBC: Recent Labs 04/07/231932 WBC 8.48 HB 13.0 PLT 355 MCV 89.3 CHEM: Recent Labs 04/07/231932 NA 140 K 4.0 CA 9.0 ANION 9 CHLOR 107 CO2 24 GLUC 88 BUN 8 CREAT 0.55 HEPATIC: Recent Labs 04/07/231932 ALT 760* AST 261* TBILI 0.6 ALKPHOS 212* ALB 3.5 TPROT 6.5 URINALYSIS:No results for input(s): SPGR , UBACTERIA , LEUKEST , SSA , UWBC , URBC , UHB , UPROT , UGLUC , UKET in the last 168 hours. Invalid input(s): NITR COAG: No results for input(s): APTT , INR in the last 168 hours. CARDIAC: No results for input(s): CKMB , CKMBP , TROPT , PBNP in the last 168 hours. DATA: Diagnostic tests reviewed for today's visit: Most recent labs and imaging results. Most recent EKG Urine Culture: Positive Micro-30 Days No results found for the last 720 hours. Blood Culture: Positive Micro-30 Days No results found for the last 720 hours. Medication and Non-Pharmacologic VTE Prophylaxis/Anticoagulants Anticoagulant AND Antiplatelet Medications (From admission, onward) Start Dose Route Frequency Last Action Ordered Stop 04/07/23 1630 enoxaparin 40 mg injection (LOVENOX) (enoxaparin injection (LOVENOX)) 40 mg SUBCUTANEOUS EVERY 24 HOURS Given, 04/07 1628 04/07/23 1609 -- 04/07/23 1600 activity - mobilize patient (fl,oh) VTE Prophylaxis: VTE prophylaxis appropriate Assesment: Epigastric abdominal pain suspected pancreatitis Elevated liver enzymes Vomiting Obesity BMI 37 Plan I reviewed GI note recommended MRCP which will be ordered, reviewed blood work showed elevated liver enzymes, will obtain hepatitis roof panel hanger LFTs for tomorrow otherwise BMP CBC unremarkable. Continue IV fluid pain management and monitor. Plan of care discussed with: Provider, RN, Patient. Disclaimer This dictation was created using voice recognition software. Phonetic and/or minor grammatical errors may exist. SIGNATURE: Maco Flores MD PATIENT NAME: Tran Blackwell DATE: April 08, 2023 TIME: 1:35 PM [facility] Clinical Note 04-08-2023 Note Date & Type Note Facility 04-08-2023 Note HNO ID: [id number] Author: Nayana Reyes RN Service: Care Management Author Type: Registered Nurse Type: Care Mgt Initial Assessment Filed: 04/08/2023 12:48 PM Note Text: CARE MANAGEMENT: ASSESSMENT AND DISCHARGE PLAN SERVICE DATE: April 08, 2023 SERVICE TIME: 914 PCP: No primary care provider on file. Primary Contact: Extended Emergency Contact Information Primary Emergency Contact: Erickson Blackwell Mobile Relation: Spouse Admission Status: Inpatient Insurance Provider: [facility] GENERIC Discharge Planning requested by: Per Department Practice Potential Transition Plans Home Advance Directives Current Advance Directive: None Culinary Specialist Attempted to Assist with AD Completion: Yes Action: Patient Unwilling Current Living Arrangements and Support Lives with: Spouse/significant other Type of Residence: Private Residence (House) Does the patient have to climb stairs at home?: Yes;stairs within the home Support: Spouse/significant other, Family members How do you manage to accomplish the following: Independent: Ambulation;Bathe/Shower;Dress;Meals/Meal Prep;Going to the bathroom;Medication Management Dependent: Transportation to appointments/community Current Services/Equipment Current Post-Acute Service(s): None Discharge Planning Patient Goal(s): Less pain, Be able to go home, General wellness [place] of Choice Explained: [place] of Choice Given: No Reason Not Given: No placements necessary Are you interested in bedside delivery of your medications? No Discharge Planning Participant(s): Patient;Spouse/significant other Patient/Family Comments: Caregiver Assessment: Caregiver is ready, willing and able to meet the patient's needs as recommended by the inter-professional team: No Caregiver needed Transport at Discharge: Transportation Arrangements: Car Needs Prior to Discharge: Needs Prior to Discharge: Procedure Procedure Needed: MRCP Post-Acute Discharge Plan: Chart reviewed. Spoke with pt and pt's at bedside. Admitted with acute pancreatitis. NPO. GI consulted. Pt from home with , normally independent with ADLs, does not drive but has transportation, and has no DME at home. States Dr. Velazco is PCP but has not seen in a while. D/C plan is home with . Denies any needs. SIGNATURE: Nayana Reyes RN PATIENT NAME: Tran Blackwell DATE: April 08, 2023 TIME: 12:43 PM CONTACT #: [id number] [facility] Summary Purpose Family History No Family History Records FoundNo Family History Records FoundNo Family History Records FoundNo Family History Records Found Advance Directives No Advanced Directives Records FoundNo Advanced Directives Records FoundNo Advanced Directives Records FoundNo Advanced Directives Records Found Additional Source Comments INFORMATION SOURCE (unrecogn ized section and content) DATE CREATED AUTHOR AUTHOR'S ORGANIZ ATION 05/13/2019 [facility] [employer] DATE CREATED AUTHOR AUTHOR'S ORGANIZ ATION 05/02/2023 [facility] DATE CREATED AUTHOR AUTHOR'S ORGANIZ ATION 05/02/2023 [facility] nter FOR RECORDS PERTAINING TO PATIENTS WHO ARE OR HAVE BEEN ENROLLED IN A CHEMICAL DEPENDENCY/SUBSTANCEABUSE PROGRAM, SOME INFORMATION MAY BE OMITTED. This clinical summary was aggregated from multiple sources. Caution should be exercised in using it in the provision of clinical care. This summary normalizes information from multiple sources, and as a consequence, information in this document may materially change the coding, format and clinical context of patient data. In addition, data may be omitted in some cases. CLINICAL DECISIONS SHOULD BE BASED ON THE PRIMARY CLINICAL RECORDS. [employer] [facility] provides no warranty or guarantee of the accuracy or completeness of information in this document.
[2023-09-21 09:33] LABS: Internal QC Validated? YES +Cl - CLEAR BKGD; Pregnancy, Urine Negative Negative; Record Kit Lot#,Urine Preg HCG0000718086
[2023-09-21] MEDS: Lactated Ringers 1,000 ML 15 ML IV (09:46)
--- NOTE | 2023-09-21 10:13 | HP.PCM_ITS ---
History and Physical Date of Admission: 09/21/23 BD PAIN Details: LAKEISHA CLAYTON, is a 28 F who presents to the office today for HFU. *[facility] ho spitalization 06.05.23-06.06.23 with RUQ abdominal pain finding gallbladder colic with cholelithiasis and choledocholithiasis and elevated LFT. ?US RUQ 06.04.23?gallbladder full of stones with diffuse shadowing without wall thickening or pericholecystic fluid ?MRCP 06.05.23?numerous gallbladder stone occupying 50% of gall bladder lumen with moderated CBD dilation up to 1.3cm and single small filling defect. ?ERCP 06.05.23?entire MBD dilated with stone causing obstruction, sphincterotomy/balloon extraction; temporary stent in CBD. No specimens Outpatient: ?Surgery 06.09.23 ([facility])?laparoscopic cholecystectomy ? ? OV 09.08.23- Pt well since hospital visit. Was having some RUQ pain but is gone now. BM are stable. Has diarrhea sometimes but contributes that to diet. ROS Const Constitutional: No fatigue ENT ENT: No difficulty swallowing Gastro GI: Positive for constipation; No abdominal pain, belching, bloating, change in bowel habits, change in stool character, coffee ground emesis, cramping, diarrhea, heartburn, difficulty swallowing, feeling full early, excessive flatus, incontinent of stools, Vomiting blood/hematemesis, Blood in stool, loose stools, Black,tarry stools, nausea/dyspepsia, pain with swallowing, vomiting or other Musc Musculoskeletal: No joint pain Skin Skin: No yellowing of the eye or itchy eyes Psych Psychiatric: No anxiety and No depression Endo Endocrine: No fatigue Aller/Imm Allergy/Immunologic: No itchy eyes Km/Lymp Hematologic/Lymphatic: No easy bleeding or easy bruising Exam Const General: cooperative and comfortable Nutritional Appearance: average body habitus and well nourished [facility] Head: normal to inspection Ears: hearing grossly normal bilaterally Nose: external nose normal Face and sinus: normal facial exam Mouth: oral mucosae normal Throat: posterior oropharynx normal Eyes General: appearance normal, both eyes and all related structures Neck Neck: normal visual inspection Chest Chest palpation & inspection: normal inspection of the chest and normal palpation of entire chest wall Resp Effort & Inspection: normal respiratory effort Auscultation: Bilateral: Clear to Auscultation Cardio Palpation: normal PMI Rate: regular rate Rhythm: regular rhythm GI Inspection: normal to inspection Auscultation: normal bowel sounds Percussion: normal to percussion Palpation: no hepatosplenomegaly Skin General: no rashes or lesions noted Neuro General: patient alert Extrem General: normal to inspection Psych Affect: normal affect Quality Reporting Tobacco Screening ([facility] 138) Smoking Status: Never smoker Assessment and Plan Assessment and Plan (1) Choledocholithiasis: Status: Acute Plan: 28-year-old female was admitted for right upper quadrant abdominal pain for about 1 day prior to admission with history of gallbladder colic being followed by [facility].. Pain was of sudden abrupt onset similar to the previous episodes of gallbladder colic. No associated fever chills nausea vomiting or use of Tylenol. Ultrasound shows cholelithiasis without evidence of cholecystitis. The patient had history of gallbladder colic had about 2-3 episodes of the gallbladder colic in the past. 1. Right upper quadrant pain, gallbladder colic with cholelithiasis and choledocholithiasis: Total bilirubin 1.3, with AST of 618 and ALT of 570 present on admission.- Admit to general medical floor. Continue empiric IV Zosyn begun in the ER. Patient is on pain control with IV morphine. MRCP suggestive of stone at terminal CBD at junction of duodenum. Plan for ERCP with possible stent. Unfortunately will happen late around 4 to 5 PM and might return to room around 7-8 PM therefore advised to stay overnight for postprocedure vomiting nausea or other side effects.. CBD stone was extracted after biliary sphincterotomy. Temporary stent inserted. We schedule her for stent removal. I have examined the patient and the H&P has been reviewed. There are no clinical changes since date of exam.
--- NOTE | 2023-09-21 10:40 | RAD_ITS ---
STUDY: ERCP REASON FOR EXAM: Female, 28 years old. Biliary stent removal. FLUOROSCOPY TIME (if supplied): ( 32.1 seconds ) minutes/seconds. 10.98 mGy. TECHNIQUE: An ERCP was performed by the air press operator. Fluoroscopic services were provided. COMPARISON: None. FINDINGS: Contrast was injected. No evidence of dilatation. Removal of the common bile duct stent. RAD/ERCP Biliary/Pancreas IMPRESSION: Removal of the common bile duct stent. Electronically Signed: Jose Crouch MD at 11:10 EST ,
--- NOTE | 2023-09-21 11:01 | OP.ERCP_ITS ---
Patient Name: Tran Blackwell Procedure Date: 09/21/2023 10:38 AM Date of : 1995 Age: 28 Procedure: ERCP Indications: Stent removal Providers: Camilo Larson DO Medicines: Monitored Anesthesia Care Patient Profile: This is a 28 year old female. Refer to note in patient chart for documentation of history and physical. Patient has symptoms of acute right upper quadrant abdominal pain and acute jaundice. Her most recent ERCP for biliary evaluation and ERCP for stent was within the past three months. She is status post laparoscopic cholecystectomy within the past three months. Complications: No immediate complications. Procedure: Pre-Anesthesia Assessment: - Prior to the procedure, a History and Physical was performed, and patient medications and allergies were reviewed. The patient is competent. The risks and benefits of the procedure and the sedation options and risks were discussed with the patient. All questions were answered and informed consent was obtained. Patient identification and proposed procedure were verified by the physician in the pre-procedure area. Mental Status Examination: alert and oriented. Airway Examination: normal oropharyngeal airway and neck mobility. Respiratory Examination: clear to auscultation. CV Examination: normal. ASA Grade Assessment: II - A patient with mild systemic disease. After reviewing the risks and benefits, the patient was deemed in satisfactory condition to undergo the procedure. The anesthesia plan was to use monitored anesthesia care (MAC). Immediately prior to administration of medications, the patient was re-assessed for adequacy to receive sedatives. The heart rate, respiratory rate, oxygen saturations, blood pressure, adequacy of pulmonary ventilation, and response to care were monitored throughout the procedure. The physical status of the patient was re-assessed after the procedure. After obtaining informed consent, the scope was passed under direct vision. Throughout the procedure, the patient's blood pressure, pulse, and oxygen saturations were monitored continuously. The Duodenoscope was introduced through the mouth, and advanced to the duodenum and used to inject contrast into the bile duct and ventral pancreatic duct. The ERCP was accomplished without difficulty. The patient tolerated the procedure well. Scope In: 10:40:17 AM Scope Out: 10:47:08 AM Total Procedure Duration Time 0 hours 6 minutes 51 seconds Findings: The bmw service technician film was normal. The esophagus was successfully intubated under direct vision. The scope was advanced to a normal major papilla in the descending duodenum without detailed examination of the pharynx, larynx and associated structures, and upper GI tract. The upper GI tract was grossly normal. A 0.035 inch x 260 cm angled Hydra Jagwire was passed into the dorsal pancreatic duct. The dorsal pancreatic duct was then deeply cannulated. I personally interpreted the bile duct and pancreatic duct images. There was brisk flow of contrast through the ducts. Image quality was excellent. Contrast extended to the entire biliary tree. Opacification of the entire pancreatic ductal system was successful. The maximum diameter of the ducts was 2 mm. The entire opacified area was normal. The bile duct was deeply cannulated with the short-nosed traction sphincterotome. Contrast was injected. Opacification of the entire biliary tree except for the cystic duct and gallbladder was successful. The maximum diameter of the ducts was 8 mm. The lower third of the main bile duct contained two stones, the largest of which was 6 mm in diameter. The main bile duct was mildly dilated and segmentally dilated, with a stone causing an obstruction. The largest diameter was 10 mm. A straight Roadrunner wire was passed into the biliary tree. A 5 mm biliary sphincterotomy was made with a traction (standard) sphincterotome using ERBE electrocautery. There was no post-sphincterotomy bleeding. The biliary tree was swept with a 12 mm balloon starting at the bifurcation. Sludge was swept from the duct. All stones were removed. One stent was removed from the biliary tree using a snare. Impression: - The entire main bile duct was mildly dilated, with a stone causing an obstruction. - Choledocholithiasis was found. Complete removal was accomplished by biliary sphincterotomy and balloon extraction. - A biliary sphincterotomy was performed. - The biliary tree was swept. - One stent was removed from the biliary tree. Procedure Code(s): --- Professional --- 37964, Endoscopic retrograde cholangiopancreatography (ERCP); with removal of foreign body(s) or stent(s) from biliary/pancreatic duct(s) 33394, Endoscopic retrograde cholangiopancreatography (ERCP); with removal of calculi/debris from biliary/pancreatic duct(s) 20972, Endoscopic retrograde cholangiopancreatography (ERCP); with sphincterotomy/papillotomy CPT copyright 202 [employer]. All rights reserved. The codes documented in this report are preliminary and upon mower sharpener review may be revised to meet current compliance requirements. Camilo Larson DO 09/21/2023 11:01:08 AM This report has been signed electronically. Number of Addenda: 0 Note Initiated On: 09/21/2023 10:38 AM
--- NOTE | 2023-09-21 11:02 | OP.CCLET_ITS ---
09/21/2023 Martin Lin Re : ERCP procedure for Tran Blackwell Dear Delia This procedure was performed on Thursday, September 21, 2023. My impressions and recommendations are as follows: Impressions : - The entire main bile duct was mildly dilated, with a stone causing an obstruction. - Choledocholithiasis was found. Complete removal was accomplished by biliary sphincterotomy and balloon extraction. - A biliary sphincterotomy was performed. - The biliary tree was swept. - One stent was removed from the biliary tree. Recommendations : My findings are described in the full procedure note, which is enclosed. If I can be of further assistance, please feel free to contact me at . Sincerely, Camilo Larson, 09/21/2023 11:01:08 AM This report has been signed electronically.
== END 2023-09-21 12:29 | disposition home or self-care (01) ==
LOC: EN 09:07 → AC 09:08
PROVIDERS: Anesthesiology; PCP Family Medicine; Referring Provider Family Medicine; Visit Provider Internal Medicine Gastroenterology
PROC: (CPT 43260; principal; 2023-09-21 09:55)
DX: K80.51 Calculus of bile duct without cholangitis or cholecystitis with obstruction (principal)
CPT/HCPCS: 43275; 43262; 43264; 74330; 76000; 81025; 93005; J7120; C1769; J2405